=== PATIENT | female | born 1965 | race Caucasian/White ===

== ENCOUNTER 2017-08-09 13:23 | Inpatient (IN) | payer SELFPAY ==
--- NOTE | 2017-08-09 14:39 | CT ---
NONCONTRAST ENHANCED CT IMAGES OF ABDOMEN AND PELVIS: HISTORY: Abdominal pain. FINDINGS: Noncontrast enhanced CT images of the abdomen and pelvis demonstrate the lung bases to be unremarkabl e. No evidence of free intraperitoneal air is seen. The liver is nodular compatible with changes of cirrhosis without evidence of hepatic masses on this noncontrast-enhanced CT. Gallstones seen. No evidence of intrahepatic biliary dilatation is seen. Splenomegaly is seen. The spleen has 3-dimensional measurements of 4.5 x 14.3 x 11.2 cm. Unfortunat abdulaziz, oral contrast was not given. There appears to be nonfilled tortuous lops surrounding the stomac h which may represent possible gastric varicosities. The adrenal gland is unremarkable. The right k idney contains a small approximately 1 mm nonobstructing right-sided renal calculus. No evidence of right-sided hydronephrosis seen. There is severe left-sided hydronephrosis with chronic left renal parenchymal atrophy. The left uret er is dilated. Previously placed left ureteral stent has migrated all the way from the distalmost as pect of the left ureter into the bladder where it has coiled into a large bladder calculus with exten sive lamination. Three-dimensional measurements of this bladder calculus measures 5.3 x 6.2 x 3.9 cm . There is an indwelling Ramirez catheter seen. IMPRESSION: 1. Cirrhosis. 2. Splenomegaly. 3. Cholelithiasis. 4. Findings compatible with varicosities in the left upper quadrant of the abdomen. 5. Severely hydronephrotic left kidney with left-sided hydroureteral nephrosis. 6. Chronically positioned distal left ureter migrating into the bladder and coiling on itself and fo rming a large bladder calculus. POS: DEYANIRA
[2017-08-09] MEDS ORDERED: Morphine 4 MG/ML VIAL ONE (15:05)
--- NOTE | 2017-08-09 15:07 | PDOC.FPRHP ---
- History of Present Illness Chief Complaint: Abdominal Pain History of Present Illness: Patient comes in for abdominal pain which has been on and off for the last 1-2 months. It acutely worsened 2-3 days ago and she decided to come in for evaluation. She had a L uretral stent placed in [place], [place] 1 year ago but has not been able to follow-up because of loss of insurance. PMH includes cirrhosis 2/2 hep C as well as nephrolithiasis. She describes the pain as a 10/10 cramping pain on the RLQ extending to the upper right leg, nothing makes it better or worse. Morphine does help take the edge off. She does have burning with urination and notes decreased urinary frequency for the last few days but she has been drinking less fluids because of the burning with urination. ED Course: Rocephin Vancomycin Morphine Azo CT abd/pelvis shows: cirrhosis, splenomegaly, cholelithiasis, possible abdominal varicosities, L hydronephrosis, L uretral calculi 6cm and migrated uretral stent Transferred from [place] - Allergies/Adverse Reactions Allergies Allergy/AdvReac Type Severity Reaction Status Date / Time No Known Allergies Allergy Unverified 08/09/17 17:09 - Home Medications Medication Instructions Recorded Confirmed Type Ibuprofen 200 mg PO TID PRN 08/09/17 08/09/17 History - History PMHx: cirrhosis 2/2 hep c PSHx: uretral stent 1 year ago 2/2 nephrolithiasis, hysterectomy 2/2 benign tumor of uterus FHx: non-contributory Social: 1/2 ppd smoker for 30 years, social drinker, daily marijuana user - Review of Systems General: denies: fever/chills, night sweats, fatigue Eyes: denies: eye pain, vision changes ENT: reports: nasal congestion. denies: rhinorrhea Respiratory: denies: cough, congestion, shortness of breath Cardiovascular: reports: other (hx of murmur). denies: chest pain, palpitation Gastrointestinal: reports: constipation. denies: nausea, vomiting, diarrhea, abdominal pain, GI bleeding Genitourinary: reports: incontinence (stress incontinence since stent placement) , dysuria. denies: polyuria Skin: reports: rashes (vaginal). denies: itching Musculoskeletal: denies: pain, tenderness Neurological: denies: numbness, weakness - Vital signs BP: 125/76 HR: 78 RR: 19 Tmax: 98.0 Pox: 95% on RA Wt: 86.2kg - Physical Exam Constitutional: NAD, awake, alert and oriented HEENT: normocephalic and atraumatic, PERRLA -HEENT: dry oral mucosa Neck: supple, FROM Heart: RRR, normal S1/S2 -Heart: 2/6 systolic murmur Lungs: CTAB, no respiratory distress -Lungs: mild end-expiratory wheeze Abdomen: soft, non-tender, bowel sounds present -Abdomen: No CVA tenderness Musculoskeletal: normal structure, normal tone Neurological: no focal deficit, CN II-XII intact Skin: no rash/lesions, good turgor, capillary refill <2 seconds Heme/Lymphatic: no unusual bruising or bleeding Psychiatric: normal mood and affect FMR H&P: Results - Labs Result Diagrams: 08/09/17 15:26 08/09/17 15:26 FMR H&P: A/P - Problem List (1) Nephrolithiasis Current Visit: Yes Status: Acute (2) Hydronephrosis, left Current Visit: Yes Status: Acute Code(s): N13.30 - UNSPECIFIED HYDRONEPHROSIS (3) Chronic hepatitis C with cirrhosis Current Visit: Yes Status: Acute Code(s): B18.2 - CHRONIC VIRAL HEPATITIS C ; K74.60 - UNSPECIFIED CIRRHOSIS OF LIVER (4) UTI (urinary tract infection) Current Visit: Yes Status: Acute - Plan # L hydronephrosis 2/2 renal calculi/migrated uretral stent - stent placed 1 yr ago in [place], [place] never removed 2/2 loss of insurance - Urology consulted, will need surgery at some point - await urology recommendations - symptomatic pain management - morphine, norco # UTI - + nitrites, leuk est, bacteria on U/A - rocephin - redness around vagina likely 2/2 yeast infection - diflucan 150mg one time dose # Cirrhosis 2/2 hepatitis c - platelets 163 - will check PT/INR # Stress incontinence - 1 year, likely 2/2 stent # Smoking history - 15 pack year current smoker - end expiratory wheeze - nicotine patch Fluids: none Diet: regular, NPO at midnight Code: full Dispo: pending urology recs FMR H&P: Upper Level - Plan Date/Time: 08/09/17 7693 I, [], have evaluated this patient and agree with findings/plan as outlined by technical internship resident. Pertinent changes/additions are listed here. Attending Addendum - Attending Addendum Date/Time: 08/09/172109 I personally evaluated the patient and discussed the management with Dr. Galaviz and Dr. Mcgarry I agree with the History, Examination, Assessment and Plan documented above with any addition or exceptions noted below. 52 yo female with multiple medical conditions presents for evaluation of urinary symptoms. Over the past 1 to 2 months reports pelvic pain, dysuria, incontinence, and decrease urination. Has not seen MD in over a year. VS reviewed. Labs reviewed. Images reviewed. 1. Displaced ureter stent: Urology consulted. 2. Severe calculi: Now in bladder. Will have to be surgically removed. Urology to see in AM. Ramirez placed. 3. UTI: Continue antibiotics. Culture pending. 4. Cirrhosis 2/2 hep C: T. bili elevated. Trend. AST mildly elevated. Trend. Adjust home meds as needed. Harvey
[2017-08-09 15:34] LABS: #Basophils 0.1 thou/uL (0.0-0.2); #Eosinphils 0.3 thou/uL (0.0-0.7); #Lymphocytes 1.2 thou/uL (1.20-3.40); #Monocytes 0.6 thou/uL (0.11-0.59); #Neutrophils 3.6 thou/uL (1.40-6.50); %Lymphocytes 21.1 % (21.0-51.0); %Monocytes 11.1 % (0.0-10.0); %Neutrophils 61.8 % (42.0-75.0); Hemoglobin 12.8 g/dL (12.0-16.0); Mean Corpuscular HGB CONC 33.7 g/dL (32.0-36.0); Mean Corpuscular Volume 94.8 fl (81.0-99.0); Mean Platelet Volume 6.7 fL (7.4-10.4); Platelet Count 150 thou/uL (130-400); RBC Distribution Width 13.7 % (11.5-14.5); White Blood Cell (WBC) Count 5.7 thou/uL (4.8-10.8)
[2017-08-09 15:40] LABS: INR-International Normal Ratio 1.2; PTT 33.1 SEC (22.9-36.1); Prothrombin Time 15.5 SEC (12.0-14.7)
[2017-08-09 15:43] LABS: Bilirubin Negative (Negative); Blood, Urine Large (Negative); Clarity TURBID (Clear); Glucose, Urine (Dipstick) Negative (Negative); Leukocyte Large (Negative); Protein, Urine (Dipstick) 100 mg/dL (Neg-Trace); Specific Gravity, Urine 1.018 (1.002-1.036)
[2017-08-09 15:48] LABS: Bacteria/HPF 1+ HPF (None Seen); RBC/HPF GREATER THAN 50-TNTC HPF (0-3)
[2017-08-09 15:50] LABS: Pathc Cast-AUWi Flag 18.07 (0-2.49)
[2017-08-09 15:57] LABS: ALT (SGPT) 29 U/L (8-55); AST (SGOT) 40 U/L (5-34); Albumin 3.3 g/dL (3.5-5.0); Alkaline Phosphatase 106 U/L (40-150); Anion Gap 10 mmol/L (10-20); BUN (Urea Nitrogen) 14 mg/dL (9.8-20.1); Bilirubin, Total 2.2 mg/dL (0.2-1.2); Calc. Creatinine Clearance 0 mL/min (70-130); Calcium 8.6 mg/dL (7.8-10.44); Carbon Dioxide 27 mmol/L (22-29); Chloride 105 mmol/L (98-107); Estimated GFR-MDRD 79; Globulin 3.3 g/dL (2.4-3.5); Glucose 91 mg/dL (70-105); Potassium 3.8 mmol/L (3.5-5.1); Protein, Total 6.6 g/dL (6.0-8.3); Sodium 138 mmol/L (136-145)
[2017-08-09 16:03] LABS: Nitrite Unable to Interpret (Negative)
[2017-08-09 16:04] LABS: Hyaline Casts/LPF 0-3 HYALINE CAST LPF (0-3 Hyaline); Other Casts/LPF None Seen LPF (0-3 Hyaline)
[2017-08-09] MEDS ORDERED: cefTRIAXone\\ROCEPHIN 1 GM in Sodium Chloride 0.9% 100 ML IVPB SCH (16:31)
[2017-08-09] MEDS ORDERED: Ondansetron ODT 4 MG TAB PO PRN (16:31)
--- NOTE | 2017-08-09 16:55 | PDOC.EVN ---
Event Note - Event Note Event Note: UPPER LEVEL NOTE Date/Time: 08/09/17 1505 52 yo with uretral stent that was never removed presents with pain in left lower back, suprapubic pain and dysuria. Denies confusion or fever. Gen: obese female in no acute distress, moves around bed with no pain HEENT: NC/AT, RUCHI,EOMI, MMM Resp: CTA, normal work of breathing CV: RRR, normal S1, S2, no murmur ABD: Soft nontender, nondistended. No CVA tenderness Extremities: no edema, pulses 2+ Psych: calm, normal affect and mood Neuro: No focal defecits. CN intact, normal strength and sensation Marquise Contreras, have evaluated this patient and agree with findings/plan as outlined by consultant internship resident in H&P. Pertinent changes/additions are listed here. 1. L obstructive hydronephrosis secondary to calcified uretral stent- Dr. Hayden consulted and recommends that patient be treated conservatively with abx and pain control while patient is worked up for surgyer. will place nephrostomy tube if patient worsens. 2. Cystitis vs pylonephritis- patient has no CVA tenderness or fever and is not septic. will treat with rocephin. one dose of vanc in ED 3- Cirrhosis 2/2 to hep C- Will check LFTs and coags 4. Tobacco abuse- will advise strongly to quit.
[2017-08-09] MEDS ORDERED: Fluconazole 100 MG TAB PO SCH (17:15)
[2017-08-09] MEDS: HYDROcodone/Acetaminophen 10/325 mg Tablet PO PRN ×2 (17:18→21:31)
[2017-08-09] MEDS: Morphine 4 MG/ML VIAL SLOW IVP PRN ×2 (17:18→20:30)
[2017-08-09] MEDS: Nicotine 14 MG PATCH TD SCH (17:22)
[2017-08-09 18:52] VITALS: BMI 37.0
[2017-08-09] MEDS: cefTRIAXone\\ROCEPHIN 1 GM, Syringe 0.4 ML in Sterile Water 9.6 ML SLOW IVP SCH (18:53)
[2017-08-09] MEDS: Docusate 100 MG CAP PO SCH (20:30)
--- NOTE | 2017-08-10 02:31 | CON ---
DATE OF CONSULTATION: 08/09/2017 Consultation was requested for UTI, large bladder stone with retained stent. HISTORY OF PRESENT ILLNESS: Patient is a 52-year-old female who had approximately past month of lower abdominal suprapubic pain, frequency, urgency that worsened to the level of excruciating over the past 1-2 days. She has had multiple stones before and passed 3 on her own. She has required what sounds like left PCNL and was already told previously that the left kidney may not function well in the future. She has had UTIs off and on, but only since the stent was placed approximately one year ago. This was done for a stone and the stone was not removed. She was told she needs to follow up for definitive therapy at [facility]. She tried to go to [facility] multiple times, but ultimately nothing was done. Normally, she has frequency q.2-3 hours, nocturia x0-1, but more recently it has been q.30 minutes and nocturia q.30 minutes. She has had gross hematuria, but no fever, nausea, or vomiting. Urine has been cloudy and malodorous. She is not on antibiotics upon admission. PAST MEDICAL HISTORY: Significant for hepatitis C (IVDA), cirrhosis being diagnosed in 2004. She underwent interferon therapy, which apparently did not work, as her levels were only marginally improved from a titer standpoint. She has not followed up with further GI services related to this. PAST SURGICAL HISTORY: Stent approximately 1 year and three months ago, where the stone prior stent and what sounds like right PCNL. 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 She also had Pap smear after that was concerning, but follow up repeat was normal. ALLERGIES: None. SOCIAL HISTORY: Smokes half pack a day and has for 30 years, smoked a pack a day for about 25 years. She is a social drinker, which means once a month, one glass of wine of that. I discouraged any drinking given her hep C liver status. She uses marijuana regularly/daily, but denies any recent IV drug use. She did use it in the past, the last was at age 17. She was tested for HIV at that time as well and found to be negative. REVIEW OF SYSTEMS: Reveal she had a mammogram 3-4 years ago, which was normal. She had a colonoscopy of 10 years ago, which was normal. She takes ibuprofen and Tylenol daily for aches and pains. She denies any chest pain, shortness of breath, or coughing. She denies any diarrhea or constipation. FAMILY HISTORY: Significant for mom of COPD in her 70s. Father of trauma in almost 80. No known cancer. There was no diabetes in family. PHYSICAL EXAMINATION: GENERAL: She appears comfortable in the bed, is in no distress. VITAL SIGNS: Showed she has been afebrile at 98.2, heart rate 76, respiratory rate 18, satting 96% on room air with blood pressure 150/74. She does not have Ramirez catheters. HEAD, EYES, EARS, NOSE, AND THROAT: She has no obvious JVD. She has no scleral icterus. She has no significant ecchymoses. CARDIOVASCULAR: Regular rate and rhythm. No murmurs, gallops, rubs. RESPIRATORY: Clear to auscultation bilaterally. There was no wheeze noted. ABDOMEN: Soft, mildly distended, mild tenderness in the suprapubic area. No rebound tenderness or peritoneal signs. She had no costovertebral angle tenderness. She had a midline infraumbilical incision noted. EXTREMITIES: She has no lower extremity edema. LABORATORY DATA: Reveal white count of 5.7, otherwise CBC was unremarkable. New coags show INR of 1.2. PT 15.5 and PTT 33.1. BUN and creatinine are 14 and 0.77, bilirubin was 2.2. AST and ALT were 40 and 29 respectively, and alkaline phosphatase 106. Urinalysis revealed too numerous to count rbc's, too numerous to count wbc's, 1+ bacteria, 4-6 squamous cells at the outlying facility, at which she already received a gram of Rocephin for being transferred. She had 2+ bacteria, so we should look for that culture if the culture at this institution is negative. IMAGING: CT scan was reviewed personally, revealed a juancarlos of stone in the right kidney. Left kidney showed no stone or chronic dilation with decreased parenchyma and ureteral dilation down to the bladder with a proximal coil of the stent in the distal ureter without any obvious large stone attached to it, and then it descended into the bladder and the cannulation with a 6-cm stone, presumably this was rest of stent coiled and now there is a giant stone filling her bladder. ASSESSMENT AND PLAN: We have a 52-year-old female with chronic dilation and loss of parenchyma in the left kidney, possibly even before this retained stent episode now definitively. She has no signs of infection of the urine behind the stent given her stable and normal vital signs, lack of left flank pain, and normal white count. We reviewed how if there was any concern for that, she would need a percutaneous nephrostomy tube urgently. But at this point, given the lack of parenchyma and the lack of concern for this, I do not think that would be beneficial. We reviewed how the bladder stone is too large to treat cystoscopically and ultimately will require an open procedure. I would prefer to treat this active infection first. I did discuss how it will be helpful, if she could be medically cleared for any surgical intervention from the heart, lung and liver standpoint. Once all of this is obtained as an inpatient, and depending how long this takes/those recommendations, my anticipation would be that she could be discharged on antibiotics to follow up as an outpatient to arrange definitive surgery in the next 1-4 weeks. IJEOMA
[2017-08-10 05:45] LABS: Anion Gap 6 mmol/L (10-20); BUN (Urea Nitrogen) 16 mg/dL (9.8-20.1); Calc. Creatinine Clearance 124 mL/min (70-130); Carbon Dioxide 31 mmol/L (22-29); Chloride 107 mmol/L (98-107); Estimated GFR-MDRD 85; Glucose 99 mg/dL (70-105); Potassium 3.6 mmol/L (3.5-5.1); Sodium 140 mmol/L (136-145)
[2017-08-10 06:03] LABS: Hemoglobin 11.9 g/dL (12.0-16.0); Mean Corpuscular HGB CONC 33.5 g/dL (32.0-36.0); Mean Corpuscular Hemoglobin 32.1 pg (27.0-31.0); Mean Corpuscular Volume 95.9 fl (81.0-99.0); Mean Platelet Volume 7.3 fL (7.4-10.4); Platelet Count 138 thou/uL (130-400); RBC Distribution Width 13.9 % (11.5-14.5); Red Blood Cell (RBC) Count 3.71 mill/uL (4.20-5.40); White Blood Cell (WBC) Count 6.3 thou/uL (4.8-10.8)
[2017-08-10 06:04] LABS: Band 12 % (5-11); Eosinophils 7 % (0-10); Lymphocytes 18 % (21-51); MDiff Complete? YES; Monocytes 12 % (0-10); Neutrophil 51 % (42-75); PLT Morphology Comment Appears Adequate
--- NOTE | 2017-08-10 07:53 | PDOC.FM ---
- Subjective Subjective: This morning patient is in NAD and states she is "not in much pain." Ranks suprapubic pain at 7/10, random onset, no exacerbated by movement. No issues with PO intake. Has thrasher in place so no dysuria. No N/V. - Objective Vital Signs & Weight: Vital Signs (12 hours) Temp Pulse Resp BP Pulse Ox 08/10/17 07:11 186/85 H 08/10/17 04:15 98 F 78 16 121/71 90 L 08/10/17 00:00 98.1 F 82 20 142/76 H 94 L 08/09/17 20:17 97.9 F 90 22 H 133/75 93 L 08/09/17 20:08 97.9 F 90 22 H Weight Weight 86.183 kg Result Diagrams: 08/10/17 04:52 08/10/17 04:52 <Chilango Galaviz - Last Filed: 08/10/17 07:51> - Objective Vital Signs & Weight: Vital Signs (12 hours) Temp Pulse Resp BP Pulse Ox 08/10/17 11:52 97.9 F 76 18 145/79 H 95 08/10/17 08:25 97.7 F 80 18 91 L 08/10/17 07:20 97.7 F 80 18 141/66 H 91 L 08/10/17 07:11 186/85 H 08/10/17 04:15 98 F 78 16 121/71 90 L Weight Weight 86.183 kg Result Diagrams: 08/10/17 04:52 08/10/17 04:52 <Ariel Sweeney - Last Filed: 08/10/17 12:44> Phys Exam - Physical Examination Constitutional: NAD HEENT: PERRLA, moist MMs Neck: no nodes, full ROM Respiratory: no wheezing, clear to auscultation bilateral Cardiovascular: RRR, no significant murmur, no rub Gastrointestinal: soft, non-tender, no distention, positive bowel sounds No CVA tenderness Musculoskeletal: pulses present trace edema at ankles Neurological: non-focal, moves all 4 limbs Lymphatic: no nodes Psychiatric: normal affect, A&O x 3 <Chilango Galaviz - Last Filed: 08/10/17 07:51> Dx/Plan (1) Nephrolithiasis Status: Acute (2) Hydronephrosis, left Code(s): N13.30 - UNSPECIFIED HYDRONEPHROSIS Status: Acute (3) Chronic hepatitis C with cirrhosis Code(s): B18.2 - CHRONIC VIRAL HEPATITIS C; K74.60 - UNSPECIFIED CIRRHOSIS OF LIVER Status: Acute (4) UTI (urinary tract infection) Status: Acute - Plan Plan: # L hydronephrosis 2/2 renal calculi/migrated uretral stent - stent placed 1 yr ago in [place], [place] never removed 2/2 loss of insurance - Urology consulted - plans for surgery in 1-4 weeks after resolution of infection - patient receiving many PRNs for pain - morphine, norco # Pre-op risk assessment - EKG ordered - Low risk per AHA guidelines -no dm, no hf, no cardiac history, smoking, good exercise tolerance - ACS NSQUIP risk calculator below average risk, 8.9% risk of complication - nephrolithotomy, mild systemic illness, smoker, class 2 obesity - plts 150, INR 1.3, PT 15.5, will check ammonia # UTI - + nitrites, leuk est, bacteria on U/A - rocephin - redness around vagina likely 2/2 yeast infection - diflucan 150mg one time dose # Cirrhosis 2/2 hepatitis c - platelets 150, INR 1.3, Pt 15.5 # Stress incontinence - 1 year, likely 2/2 stent # Smoking history - 15 pack year current smoker - end expiratory wheeze - nicotine patch Fluids: none Diet: regular Code: full Dispo: pending urology recs, rec waiting 1-4 weeks <Chilango Galaviz - Last Filed: 08/10/17 07:51> Attending Addendum - Attending Addendum Date/Time: 08/10/17 1240 I personally evaluated the patient and discussed the management with Dr. Galaviz I agree with the History, Examination, Assessment and Plan documented above with any addition or exceptions noted below. Patient without CVAT at present afebrile, awaiting urine C&S results , RFT wnl, will await Urology rec regard utereral stent and nephrolithiasis. Discussed prophylaxis with antibiotic pending definite procedure. History Hepatitis C followed in [facility]. <Ariel Sweeney - Last Filed: 08/10/17 12:44>
[2017-08-10] MEDS: Docusate 100 MG CAP PO SCH ×2 (08:25→20:57)
[2017-08-10] MEDS: Morphine 4 MG/ML VIAL SLOW IVP PRN ×2 (08:25→12:27)
[2017-08-10] MEDS: Lactated Ringer's 1,000 ML IV SCH ×2 (11:11→20:57)
[2017-08-10] MEDS ORDERED: Senokot S 8.6-50 MG TAB PO SCH ×2 (12:22→13:45)
[2017-08-10] MEDS ORDERED: Polyethylene Glycol 3350 17 GM Packet PO SCH (12:45)
--- NOTE | 2017-08-10 13:15 | PRG ---
DATE OF SERVICE: 08/10/2017 SUBJECTIVE: The patient did well overnight. She did require some pain medicine both oral and IV. S he is tolerating her diet and feels significantly better than upon presentation. PHYSICAL EXAMINATION: GENERAL: She has been afebrile with vital signs stable. ABDOMEN: Soft with decreased tenderness in the suprapubic area from the day prior. LABORATORY DATA: Reveal a normal CBC with H&H has gone down with hydration as well as normal BUN and creatinine with her culture pending. ASSESSMENT AND PLAN: We have a 52-year-old female admitted with UTI and chronic indwelling stent joe t has migrated and become a giant stone ball in her bladder and I still would recommend IV antibiotic s and I would increase her urine output by adding fluids and encouraged her to hydrate excessively an d appreciate the medical workup with the admitting team is provided and asked GI to see her since she has not been followed for hepatitis C and we are anticipating the significant upcoming surgery to ge t input from them as well for now and continue hydration and add fluids as well as continue the Ramirez , but anticipate removing it overnight so that she will be voiding tomorrow. Hopefully, the culture will be back at that time, we can possibly discharge her home on oral antibiotics according to the cu lture.
[2017-08-10] MEDS: HYDROcodone/Acetaminophen 5/325 mg Tablet PO SCH ×3 (13:56→23:36)
[2017-08-10] MEDS: Polyethylene Glycol 3350 17 GM Packet PO SCH (13:56)
--- NOTE | 2017-08-10 15:48 | EKG ---
Test Reason : PREOP Blood Pressure : / mmHG Vent. Rate : 075 BPM Atrial Rate : 075 BPM P-R Int : 142 ms QRS Dur : 090 ms QT Int : 420 ms P-R-T Axes : 072 028 060 degrees QTc Int : 469 ms Normal sinus rhythm Normal ECG No previous ECGs available Confirmed by MAGDALENA KONG ([id number]) on 08/10/2017 3:48:11 PM Referred By: Gayle CARLISLE Confirmed By:MAGDALENA KONG
[2017-08-10] MEDS: cefTRIAXone\\ROCEPHIN 1 GM, Syringe 0.4 ML in Sterile Water 9.6 ML SLOW IVP SCH (18:37)
[2017-08-10] MEDS: Nicotine 14 MG PATCH TD SCH (18:38)
--- NOTE | 2017-08-10 19:13 | CON ---
DATE OF CONSULTATION: 08/10/2017 CHIEF COMPLAINT: Abdominal pain. HISTORY OF PRESENT ILLNESS: Ms. De Leon is a 52-year-old woman who was admitted with lower abdominal cramping to severe aching pain for 2-3 days. She had had some pain on and off over the preceding yea r since she had a ureteral stent placed for calculus. She never had the stent removed and now she pr esented with the stent having migrated to the bladder and developed a large stone around it. She has been evaluated by Urology, who has recommended surgical removal, open removal of the stone; however, the patient was noted to have a history of cirrhosis, so GI was consulted to help assist with operat jo ann risk management. Ms. De Leon was diagnosed with cirrhosis of the liver and hepatitis C around 2004. She was decompensa epi at that point and had hepatic encephalopathy and ascites requiring 6 liters paracentesis. After that, she started a low salt diet and ultimately underwent treatment for the hepatitis C genotype 2B with pegylated interferon with ribavirin. The 6-month end of treatment viral load was positive; henning rowena, the initial 12-week viral load was negative. She had early response, but ultimately was a nonre sponder. She had an EGD around 5 years ago that showed grade 2-3 varices. She was on propranolol at that time. She states that she has since stopped all her medications and only takes multiple vitami n now. She has a glass of wine twice per year. She lost her insurance around a year ago and has not had any follow up with GI over the last 5 years. PAST MEDICAL HISTORY: Cirrhosis of the liver and chronic hepatitis C and nephrolithiasis requiring u reteral stent; however, this was never removed as stated above. PAST SURGICAL HISTORY: Hysterectomy. FAMILY HISTORY: Negative for GI malignancy. SOCIAL HISTORY: She smokes half pack per day. She uses marijuana daily. A glass of wine twice per year. ALLERGIES: No known drug allergies. MEDICATIONS: Prior to admission, multiple vitamin. REVIEW OF SYSTEMS: Negative x10 systems reviewed except as stated in history of present illness. PHYSICAL EXAMINATION: VITAL SIGNS: Temperature 98.4, pulse 79, oxygen saturation 92% on room air, blood pressure 121/67. GENERAL: She is in no acute distress, alert and oriented x3. EYES: Have no scleral icterus. OROPHARYNX: Clear, without lesions. NECK: No cervical or supraclavicular lymphadenopathy. LUNGS: She has a few expiratory wheezes in her left lung cardenas. HEART: Regular rate and rhythm without murmur. ABDOMEN: Soft, nontender, nondistended. Bowel sounds are present. EXTREMITIES: No lower extremity edema now. NEUROLOGIC: Reveals no asterixis currently. LABORATORY DATA: Creatinine 0.77, bilirubin 2.2, AST 40, ALT 29, alkaline phosphatase 106, albumin 3 .3, sodium 138. INR 1.2 with a PT of 15.5. White blood cell count 6.3, hemoglobin 11.9, platelets 1 38. IMPRESSION: 1. Ureteral calculus with foreign body and urinary tract infection. She has been evaluated by [facility], Dr. Hayden and is planned for open surgical removal of the calculus. The plan is to treat her wi th antibiotics first. 2. Cirrhosis of liver secondary to chronic hepatitis C. 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 She barrientos s a MELD score of 11. She has been decompensated in the past with encephalopathy and ascites requiri ng paracentesis; however, she has no ascites or encephalopathy now. Overall, this should be okay to proceed with surgery with caution. She does have a risk for decompensation and ascites following the procedure; however, the procedure is not contraindicated based on a liver standpoint. 3. History of esophageal and possibly gastric varices. She has been on propranolol in the past. I would recommend restarting a nonselective beta erika at this time. We can start with propranolol 1 0 mg 3 times daily and adjust based on heart rate. 4. Hepatoma screening. She should undergo ultrasound of the liver and check alpha fetoprotein. The CT was noncontrast. RECOMMENDATIONS: 1. She should ultimately follow up as an outpatient for treatment of her hepatitis C. 2. I will sign off for now. Please call if GI can be of assistance. 3. I will start propranolol 10 mg 3 times daily, but it is noted that she has had some wheezing and history of smoking. She is advised to discontinue smoking and hopefully, she can tolerate the nonsel ective beta erika from a respiratory standpoint given the varices. If she cannot tolerate the beta erika, then future consideration for endoscopy and banding of varices could be given. 4. She should maintain a low salt diet.
[2017-08-10] MEDS: Propranolol 10 MG TAB PO SCH (20:56)
[2017-08-10] MEDS: Senokot S 8.6-50 MG TAB PO SCH (20:57)
[2017-08-11] MEDS: HYDROcodone/Acetaminophen 5/325 mg Tablet PO SCH ×3 (06:34→11:39)
[2017-08-11] MEDS: Lactated Ringer's 1,000 ML IV SCH (06:35)
[2017-08-11 06:57] LABS: Iron 115 ug/dL (50-170); Iron Binding Capacity, Total 210 mcg/dL (265-497)
[2017-08-11 07:15] LABS: Ferritin 77.43 ng/mL (10-291)
[2017-08-11 07:30] LABS: HBCM Index 0.05 S/CO (0-0.79); HBSAB Concentration 0.66 mIU/mL; HBSAg Index 0.23 S/CO (0-0.99); Hep A IgM AB Non-Reactive (NonReactive); Hep A IgM S/CO 0.14 S/CO (0-0.79); Hep B Surf AB Non-Reactive (NonReactive); Hep B Surf Ag Non-Reactive S/CO (NonReactive); Hepatitis B Core IGM Abs Non-Reactive (NonReactive)
[2017-08-11] MEDS: Polyethylene Glycol 3350 17 GM Packet PO SCH (08:26)
[2017-08-11] MEDS: Docusate 100 MG CAP PO SCH (08:27)
[2017-08-11] MEDS: Senokot S 8.6-50 MG TAB PO SCH (08:27)
[2017-08-11] MEDS: Propranolol 10 MG TAB PO SCH ×2 (08:27→15:10)
[2017-08-11 08:33] LABS: Hep C IgG Ab Reflex HepC Qnt (NonReactive)
[2017-08-11 08:34] LABS: Hep C Index 13.41 S/CO (0-0.79)
--- NOTE | 2017-08-11 08:59 | ULT ---
ULTRASOUND GALLBLADDER RIGHT UPPER QUADRANT: Date: 08/11/17 HISTORY: Cirrhosis, evaluate for hepatoma. COMPARISON: CT abdomen and pelvis without contrast dated 08/09/17. FINDINGS: The pancreas is not well seen. The hepatic echotexture is coarse with a lobular contour. There is cho lelithiasis. Mild distention of the gallbladder. No hepatic mass is appreciated. Right kidney measures 13.6 x 6.3 x 5.7 cm, without mass, hydronephros is, or abnormal calcifications. Liver measures 13.6 cm in length. No significant flow within the port al vein. IMPRESSION: 1. Findings concerning for possible portal vein thrombosis or very slow flow from portal hypertensio n. 2. No abnormal hepatic mass. 3. Hepatic cirrhosis. 4. Cholelithiasis with mildly distended gallbladder. The director of first impressions states there is a positive Murp hy's sign. In the correct clinical setting, this can be early signs of acute cholecystitis. 5. Normal common bile duct. POS: TPC
--- NOTE | 2017-08-11 10:55 | PDOC.FM ---
- Subjective Subjective: This morning the patient states she slept well overnight. She states the norco 5 has been managing her pain very well. She had the thrasher in overnight, it was removed this morning and she has urinated, she denies blood with urination this Am. She still has not had a BM but she states she is passing lots of flatus and feels like the laxative is helping. She denies any problems with PO intake. - Objective Vital Signs & Weight: Vital Signs (12 hours) Temp Pulse Resp BP BP Pulse Ox 08/11/17 08:03 97.9 F 66 16 08/11/17 07:11 98.7 F 74 16 167/97 H 92 L 08/11/17 04:21 97.9 F 66 16 159/60 H 93 L 08/10/17 23:56 98.1 F 67 18 149/76 H 93 L Weight Weight 86.183 kg I&O: 08/10/17 08/11/17 08/12/17 06:59 06:59 06:59 Intake Total 2024 144 Output Total 950 1950 Balance 1075 -510 Result Diagrams: 08/10/17 04:52 08/10/17 04:52 <Chilango Galaviz - Last Filed: 08/11/17 11:05> - Objective Vital Signs & Weight: Vital Signs (12 hours) Temp Pulse Resp BP BP Pulse Ox 08/11/17 11:42 97.4 F L 60 16 113/63 96 08/11/17 08:26 98.7 F 74 16 92 L 08/11/17 07:11 98.7 F 74 16 167/97 H 92 L Weight Weight 86.183 kg I&O: 08/10/17 08/11/17 08/12/17 06:59 06:59 06:59 Intake Total 2024 369 Output Total 950 1950 Balance 1075 1740 Result Diagrams: 08/10/17 04:52 08/10/17 04:52 <Ariel Sweeney - Last Filed: 08/11/17 19:10> Phys Exam - Physical Examination Constitutional: NAD HEENT: PERRLA, moist MMs Neck: no nodes, full ROM Respiratory: no wheezing, clear to auscultation bilateral Cardiovascular: RRR, no significant murmur Gastrointestinal: soft, non-tender, no distention, positive bowel sounds morbidly obese, no CVA tenderness, not tender to palpation today Musculoskeletal: no edema, pulses present Neurological: non-focal, moves all 4 limbs Psychiatric: normal affect, A&O x 3 Skin: no rash, cap refill <2 seconds <Chilango Galaviz - Last Filed: 08/11/17 11:05> Dx/Plan (1) Nephrolithiasis Status: Acute (2) Hydronephrosis, left Code(s): N13.30 - UNSPECIFIED HYDRONEPHROSIS Status: Acute (3) Chronic hepatitis C with cirrhosis Code(s): B18.2 - CHRONIC VIRAL HEPATITIS C; K74.60 - UNSPECIFIED CIRRHOSIS OF LIVER Status: Acute (4) UTI (urinary tract infection) Status: Acute - Plan Plan: # L hydronephrosis 2/2 renal calculi/migrated uretral stent - stent placed 1 yr ago in [place], [place] never removed 2/2 loss of insurance - Urology consulted - recs much appreciated - plan for abdominal surgery around 08/31, treat with doxycycline 100 BID in the meantime as culture was negative - will send patient home with [place] 5, 30 tablets, to return to clinic if pain not improving once these run out - pain is well controlled this AM # Cirrhosis 2/2 hepatitis c - platelets 150, INR 1.3, Pt 15.5 - history of esophageal varicies, paracentesis - currently not in exacerbation - RUQ US shows low portal vein flow - Anticoagulation not indicated now in light of coming surgery - home with propranolol 10mg TID - f/u Dr. Guerra, recs appreciated # Pre-op risk assessment - EKG ordered - Low risk per AHA guidelines -no dm, no hf, no cardiac history, smoking, good exercise tolerance - ACS NSQUIP risk calculator below average risk, 8.9% risk of complication - nephrolithotomy, mild systemic illness, smoker, class 2 obesity - plts 150, INR 1.3, PT 15.5 # UTI - + nitrites, leuk est, bacteria on U/A - s/p rocephin - redness around vagina likely 2/2 yeast infection - diflucan 150mg one time dose # Stress incontinence - 1 year, likely 2/2 stent # Smoking history - 15 pack year current smoker - end expiratory wheeze - nicotine patch Fluids: none Diet: regular Code: full Dispo: d/c today <Chilango Galaviz - Last Filed: 08/11/17 11:05> Attending Addendum - Attending Addendum Date/Time: 08/11/17 190 I personally evaluated the patient and discussed the management with Dr. Galaviz I agree with the History, Examination, Assessment and Plan documented above with any addition or exceptions noted below.Patient stable for discharge will f/ u outpatient with Urologist. <Ariel Sweeney - Last Filed: 08/11/17 19:10>
[2017-08-11 11:52] VITALS: BP 113/63; TEMP 97.4
[2017-08-11 14:35] LABS: EliA Vaculitis New Method **** NEW METHOD ****; Mitochondrial Ab 1.1 U/mL (<4 Negative)
--- NOTE | 2017-08-12 00:39 | DIS-2 ---
DATE OF ADMISSION: 08/09/2017 DATE OF DISCHARGE: 08/11/2017 RESIDENT: Dr. Chilango Galaviz. ADMITTING ATTENDING: Dr. Lindsay Solo. DISCHARGE ATTENDING: Dr. Ariel Sweeney. CONSULTS: Urology, Dr. Hayden, GI, Dr. Saeed. PROCEDURES: Abdominal ultrasound, CT abdomen and pelvis. PRIMARY DIAGNOSIS: Migrated ureteral stent with nephrolithiasis. SECONDARY DIAGNOSES: Hydronephrosis, cirrhosis secondary to hepatitis C, suspected portal vein at risk for portal vein thrombosis, urinary tract infection and tobacco abuse. DISCHARGE MEDICATIONS: Doxycycline 100 mg b.i.d. for 25 days, [place] 5 mg q.8 hours p.r.n. 10 days, MiraLax, propranolol 10 mg t.i.d., and ibuprofen. DISCONTINUED MEDICATIONS: None. HISTORY OF PRESENT ILLNESS AND HOSPITAL COURSE: This 52-year-old female presented to the ED with worsening abdominal pain. The pain had been going on for the last month or so, getting progressively worse, but she could not tolerate it for the last 2 or 3 days, so she decided to come in. She has history of getting a left ureteral stent placed about 1 year ago at [facility] in [place], but was not able to follow up secondary to insurance and social issues. CT of the abdomen and pelvis showed that the left ureteral stent had migrated down to the distal ureter and had a 6 mm nephrolithiasis behind it. She has a significant past medical history of cirrhosis secondary to hepatitis C with history of needing paracentesis and variceal banding. She is not currently in cirrhotic exacerbation. Her pain was well controlled with [place] and morphine upon admission. Urology was consulted and stated that the patient will ultimately need the left ureteral stent and stone removed via abdominal surgery. The patient will need to be treated effectively for her UTI before we can proceed with this surgery. GI was also consulted for evaluation of her cirrhosis. Right upper quadrant ultrasound showed risk for portal vein thrombosis. The patient was put on propranolol 10 mg t.i.d. Patient may need anticoagulation, but is not indicated now in light of urological symptoms and upcoming surgery. Plan is to treat the patient's urinary tract infection and followup outpatient for surgery in 3-4 weeks. Patient will also followup with GI for continued workup of her chronic cirrhosis. DISPOSITION: Stable. DISCHARGE INSTRUCTIONS: 1. Location: Home. 2. Diet: Regular, encourage fluids. 3. Activity: As tolerated. 4. Followup: Primary care provider at [facility], Dr. Hayden in 3-4 weeks , Dr. Guerra in 3-4 weeks. Patient will need open abdominal surgery for the removal of the ureteral stent. Also, will follow up with GI for workup of chronic cirrhosis. The patient's pain should be resolved after a 10-day course of [place] as the stone will not be moving. ER precautions were given to the patient including fever, intolerable abdominal pain, or inability to urinate. MTDD
[2017-08-12 07:38] LABS: Hepatitis A Total ABS Positive (Negative)
--- NOTE | 2017-08-12 09:05 | PRG ---
DATE OF SERVICE: 08/11/2017 S: The patient has done well overnight. She has no complaints. Her catheter was removed and she has voided without difficulty. Objective: her vitals have been stable and she has had good urine output. Unfortunately, the culture from both our hospital and the outlying hospital showed no specific organism. I discussed with the admitting service about discharging her on 4 weeks of doxycycline, but I anticipate seeing her in the office and removing the stone in an open procedure in approximately 2-3 weeks. ASSESSMENT AND PLAN: We have a 52-year-old female with a large bladder stone secondary to an indwelling encrusted stent, admitted with significant pain from a bladder infection, doing much better now, but in need of definitive therapy. I reviewed all of this with her and her significant other, and they are in agreement to see me in the office in the next couple of weeks to do paperwork and plan for an open procedure for cystolithotomy and removal of retained stent. IJEOMA
[2017-08-13 12:18] LABS: HCV log10 6.336 (.); Hep C PCR-Quant 2170000 IU/mL (.)
[2017-08-13 15:28] LABS: Smooth Muscle Total ABS 15 Units (0-19)
== END 2017-08-11 15:57 | disposition home or self-care (01) | DRG 694 ==
LOC: ERS 13:23 → SURG A 15:07
PROVIDERS: ADMIT Family Medicine; ATTEND Family Medicine
DX: N13.2 Hydronephrosis with renal and ureteral calculous obstruction (principal); K74.69 Other cirrhosis of liver; B18.2 Chronic viral hepatitis C; F17.210 Nicotine dependence, cigarettes, uncomplicated; N39.0 Urinary tract infection, site not specified
CPT/HCPCS: 36415; 74176; 76705; 80048; 80053; 80074; 81003; 81015; 82103; 82104; 82140; 82728; 83516; 83540; 83550; 85025; 85610; 85730; 86706; 86708; 87086; 87522; 93005; 93010; 96365; 96375; A4216; J0696; J2270; J3370

== ENCOUNTER 2017-09-25 08:37 | Inpatient (IN) | payer SELFPAY ==
[2017-09-25] MEDS ORDERED: Senokot 8.6 MG TAB PO PRN (11:15)
[2017-09-25] MEDS ORDERED: Artificial Tears 18 DROP/0.9 ML EA EYE PRN (11:15)
[2017-09-25] MEDS ORDERED: Eucerin (Mineral Oil/Petrolatum,White) 30 gm Jar TOP PRN (11:15)
[2017-09-25] MEDS ORDERED: hydrALAZINE 20 MG/ML VIAL SLOW IVP PRN (11:15)
[2017-09-25] MEDS ORDERED: Ketorolac Tromethamine 30 MG/ML VIAL IVP PRN (11:15)
[2017-09-25] MEDS ORDERED: Zolpidem Tartrate 5 MG TAB PO PRN (11:15)
[2017-09-25] MEDS ORDERED: Loperamide HCl 2 MG CAP PO PRN (11:15)
[2017-09-25] MEDS ORDERED: Loratadine 10 MG TAB PO PRN (11:15)
[2017-09-25] MEDS ORDERED: Ondansetron ODT 4 MG TAB PO PRN (11:15)
[2017-09-25] MEDS ORDERED: Ondansetron HCl/PF 4 MG/2 ML Vial IVP PRN (11:15)
[2017-09-25] MEDS ORDERED: Diabetic Tussin 200 MG/10 ML UDCUP PO PRN (11:15)
[2017-09-25] MEDS ORDERED: Acetaminophen 325 MG TAB PO PRN (11:15)
[2017-09-25] MEDS ORDERED: Chloraseptic Spray 180 ml Bottle PO PRN (11:15)
[2017-09-25] MEDS ORDERED: Mag-Al 1200 mg/1200 mg/30 ML UDCUP PO PRN (11:15)
[2017-09-25] MEDS ORDERED: Sodium Chloride 0.65% Nasal 44 ML BOT EA NARE PRN (11:15)
[2017-09-25] MEDS ORDERED: Milk Of Magnesia 30 ML UDCUP PO PRN (11:15)
--- NOTE | 2017-09-25 11:27 | HP ---
PRIMARY CARE PHYSICIAN: City call admission. REASON FOR ADMISSION: Left hydronephrosis, bladder calculi, displaced left ureteral stent. HISTORY OF PRESENT ILLNESS: A 52-year-old female who has a history of left- sided ureteral stent, which was placed in 04/2016 at [facility]. Subsequently, the patient was not able to follow up with Urology and stent was there. The patient was doing okay up until a few days ago she started having left-sided flank pain, which was gradually getting worse. She was feeling crampy pain in her left-sided of flank and she was also having dysuria, increased frequency, and foul-smelling urine. She denied any fever or chills. She denies any associated nausea, vomiting, or diarrhea. She reports that when she was 38 at that time she had a first time diagnosed with a stone and required a nephrostomy tube because patient's stone was too large and she was not a candidate for lithotripsy, subsequently nephrostomy tube was removed and the patient again admitted in [place], [place] with acute kidney failure. At that time, patient had another stent placed in the ureter, which was removed six weeks later. The patient was doing relatively well for a period of time up until last year in April when she required another stent placed in her left ureter at [facility]. The patient reports that she is originally from [place], but recently moved nearby [place], [place] and she was taking care of her as well as parents and she lost her Medicaid as well as social security benefits, because she did not respond timely manner and because of lack of insurance, she was not able to follow up for her care. Today, she went to [facility] for intractable flank pain where she was given Rocephin, morphine, Toradol, and subsequently, she was sent to our emergency room for evaluation and treatment. Currently, her pain is about 7 /10 in intensity. She denies any constipation or diarrhea. She denies any antibiotic exposure. She is not seeing any primary care physician or any urologist lately. The patient was evaluated at [facility] where she had a CT of the abdomen and pelvis with stone protocol, which confirmed left-sided hydronephrosis, massive urinary bladder stone with coiled ureteral stent which is displaced with severe left-sided hydronephrosis, hydroureter and atrophy of the left kidney. The patient also has multiple nonobstructive stone in the right kidney. She does have cirrhosis of liver from chronic hepatitis C. Currently, the patient is not on any medication. PAST MEDICAL HISTORY: Chronic cirrhosis of liver with portal hypertension, chronic hepatitis C, nephrolithiasis, history of ureteral stent placement for ureteral calculi. PAST SURGICAL HISTORY: History of nephrostomy which was removed subsequently, left ureteral stent placement and removal and then repeat stent placement in 2016, hysterectomy, lipoma removed from back. PSYCHIATRIC HISTORY: Reviewed and negative. SOCIAL HISTORY: The patient drinks alcohol socially. She smokes about half pack per day. She abuses marijuana periodically. She denies any other illicit drug abuse. She is not working. She was on disability before, but when her , at that time, she lost her disability benefit as well. FAMILY HISTORY: Both parents from COPD. from liver cancer. No family history of nephrolithiasis. ALLERGIES: No known drug allergy. CURRENT HOME MEDICATIONS: The patient is not on any specific medication at this point. REVIEW OF SYSTEMS: The following complete review of systems was negative, unless otherwise mentioned in the HPI or below: Constitutional: Weight loss or gain, ability to conduct usual activities. Skin: Rash, itching. Eyes: Double vision, pain. ENT/Mouth: Nose bleeding, neck stiffness, pain, tenderness. Cardiovascular: Palpitations, dyspnea on exertion, orthopnea. Respiratory: Shortness of breath, wheezing, cough, hemoptysis, fever, or night sweats. Gastrointestinal: Poor appetite, abdominal pain, heartburn, nausea, vomiting, constipation, or diarrhea. Genitourinary: Urgency, frequency, dysuria, nocturia. Musculoskeletal: Pain, swelling. Neurologic/Psychiatric: Anxiety, depression. Allergy/Immunologic: Skin rash, bleeding tendency. Please see my HPI for pertinent positive and negative. All other review of systems reviewed and negative except as mentioned in the HPI. EMERGENCY ROOM COURSE: At [facility], the patient was treated with Rocephin, Toradol and morphine. She was given morphine in our emergency room. PHYSICAL EXAMINATION: VITAL SIGNS: On arrival, blood pressure 137/76, pulse 74, respiratory rate 20, temperature 98.1, saturation 98% on room air, weight 88.4 kilograms. GENERAL: The patient is currently alert, awake, no obvious acute distress. HEAD: Normocephalic, atraumatic. EYES: Pupils round, reactive to light. Extraocular muscle intact. ENT: Oropharynx within normal limits. Moist mucous membranes. No oral lesion , no pharyngeal erythema, no exudate. NECK: Supple, no JVD, no thyromegaly, no carotid bruit, no jugular venous distention. LUNGS: Clear to auscultation without any rhonchi or rales. CARDIAC: S1, S2 regular. No murmur, no gallop, no rub. ABDOMEN: Soft. The patient does have flank discomfort and suprapubic discomfort. No peritoneal sign, no guarding, no rigidity, no rebound. BACK: CVA tenderness on the left side. EXTREMITIES: Upper extremity: Passive movement of all joints are normal. Lower extremities: No edema. Good peripheral pulsation, no calf tenderness. SKIN: No skin rash. HEMATOLOGICAL: No lymphadenopathy. PSYCHIATRIC: Normal affect. NEUROLOGIC: Nonfocal examination. The patient moves all 4 limbs. Plantar bilateral flexor. SIGNIFICANT LABORATORY DATA: The patient had all testing done at [facility] and reviewed by me. CT of the abdomen and pelvis showed massive urinary bladder stone surrounding extensively coiled ureteral stent within the urinary bladder. Other end of ureteral stent is located in dilated left ureteral distally, urinary bladder wall thickening, severe left hydronephrosis, hydroureter, left kidney atrophy, multiple nonobstructive stone in the right kidney, cirrhosis of liver with portal hypertension, cholelithiasis without any cholecystitis. BMP: Sodium 141, potassium 3.7, chloride 109, carbon dioxide 23 , anion gap 13, BUN 13.3, creatinine 0.7, glucose 118, calcium 8.8. LFT: Alkaline phosphatase 106, AST 41, ALT 29, protein 6.4, albumin 3.1. CBC: WBC 5.4, hemoglobin 13.6, platelet 87. Urinalysis showing blood large, nitrite negative, leukocyte esterase large, rbc and wbc greater than 200. ASSESSMENT: 1. Severe left hydronephrosis and hydroureter with atrophy of left kidney due to obstructive etiology. 2. History of left ureteral calculi with left ureteral stent which appears to be displaced in bladder and other end of stent in distal end of ureter, massive urinary bladder calculi with a ureteral stent, acute cystitis, multiple nonobstructive stone in the right kidney, cirrhosis of liver with portal hypertension, cholelithiasis without any cholecystitis, thrombocytopenia, chronic hepatitis C, tobacco abuse disorder, and marijuana abuse. PLAN: 1. Full admission to medical floor. We will start empiric antibiotic therapy with Rocephin and Levaquin for cystitis. Urology will be consulted and this patient will need urologic surgical procedure may be on Wednesday or Wednesday. We will continue with gentle IV fluid with NS at 75 mL per hour. We will control her pain with morphine and Toradol p.r.n. basis. 2. Deep venous thrombosis prophylaxis with SCD boots only. No Lovenox because of thrombocytopenia. 3. Gastrointestinal prophylaxis, Pepcid 20 mg p.o. b.i.d. 4. Code status: The patient is FULL CODE. The patient does not have any surrogate decision maker. Disposition plan based on clinical course. We are expecting patient's stay in hospital more than 2 midnights. Plan of care discussed with the patient in detail. We will send urine culture and based on urine culture result, we will change antibiotic therapy accordingly. CALVIND
[2017-09-25 13:02] LABS: Bilirubin Negative (Negative); Blood, Urine Large (Negative); Clarity TURBID (Clear); Glucose, Urine (Dipstick) Negative (Negative); Leukocyte Large (Negative); Nitrite Positive (Negative); Protein, Urine (Dipstick) 100 mg/dL (Neg-Trace); Specific Gravity, Urine 1.017 (1.002-1.036)
[2017-09-25 13:07] LABS: Pathc Cast-AUWi Flag 5.68 (0-2.49); Yeast-AUWi Flag 583.6 (0-25.0)
[2017-09-25] MEDS: Sodium Chloride 0.9% 1,000 ML IV SCH ×2 (13:12→23:45)
[2017-09-25] MEDS: cefTRIAXone\\ROCEPHIN 1 GM in Sodium Chloride 0.9% 100 ML IVPB SCH (13:12)
[2017-09-25 13:15] LABS: Bacteria/HPF 3+ HPF (None Seen); Hyaline Casts/LPF 0-3 HYALINE CAST LPF (0-3 Hyaline); Manual Microscopic Reviewed? No Path Casts Seen; Yeast-All Forms None Seen HPF (None Seen)
--- NOTE | 2017-09-25 14:07 | CON ---
DATE OF CONSULTATION: 09/25/2017 CHIEF COMPLAINT: Consultation was requested for abdominal pain with known large bladder stone. HISTORY OF PRESENT ILLNESS: Patient is a 52-year-old female, who was actually admitted after a trans justine from [facility]. She was originally admitted and transferred from [place] in July and I saw her on 08/09/2017 and noted that she had a very large 6 cm bladder stone related to a migrated and presu mably coiled stent with the proximal portion of the stent in the distal ureter. At that time, she wa s discharged on 4 weeks of antibiotics and I attempted to set her up for definitive surgery with me. However, based on lack of insurance issues, there was no ability to get her set up for this and I sp roselyn with a urologist in her area, who was going to see her. She did not see that gentleman yet. She did show up again to the ER and was transferred here with abdominal pain, and after speaking with [facility] emergency room physician, we felt it was best to go ahead and admit her and anticipate surgery this day so that she does not keep coming in every month with the same issue. The patient reports abdominal pain sometimes with urination and sometimes without. No fevers, no chi lls, some hematuria, but no clots. PAST MEDICAL HISTORY: Significant for hepatitis C secondary to IV drug abuse, status post interferon that did not help and subsequent cirrhosis diagnosed in 2004, for which she saw GI her last hospital ization here, and kidney stones. PAST SURGICAL HISTORY: She had a left stent around 04/2016 that was never removed and is the current issue. She also had right PCNL. 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 She also had an abnormal Pap, but subsequents were okay. ALLERGIES: None. REVIEW OF SYSTEMS: Reveals she had a mammogram 3-4 years ago, which was normal; a colonoscopy 10 yea rs ago, which was normal. She denies any chest pain, no cough, no shortness of breath. No nausea, v omiting, or diarrhea. Her bowels have been normal. We previously discussed how her left kidney like ly has no significant function and she reports that this was likely the case even when a stent was pl aced, as there have been chronic changes that she was told about before that stent procedure. MEDICATIONS: None daily. She finished doxycycline approximately 2 weeks ago. FAMILY HISTORY: Mother of COPD in her 70s. Dad of trauma at 79. PHYSICAL EXAMINATION: GENERAL: She appears comfortable in the bed. HEENT: No scleral icterus. NECK: No JVD. CARDIOVASCULAR: Regular rate and rhythm, questionable faint systolic ejection murmur heard. LUNGS: Clear to auscultation bilaterally. ABDOMEN: Soft, nondistended, no significant tenderness. There was mild left CVA tenderness, none on the right. On her abdominal exam, there is a clear midline incision noted infraumbilical from her p rior hysterectomy. EXTREMITIES: No lower extremity edema. LABORATORY DATA: From [facility] show no white count with low platelets, which for her is lower than previous at 87, as she was previously around 150 and 138 before. BUN and creatinine are 13.3 and 0.7 . Urinalysis again from [facility] showed greater than 200 WBCs, greater than 200 RBCs, trace bacteri a, few squamous with few calcium oxalate crystals. CT from [facility], 09/25/2017, without contrast quentin kaplan personally, is relatively unremarkable, and in comparison to her prior, this shows 3 right-si ded stones, 2 in the upper and 1 in the lower, that are 3 mm or less and then the large 6 now 6.5 cm bladder stone with the stent coiled within this and extending into the distal ureter where the coil h as some stone debris proximally as well with chronic left hydroureteronephrosis with very minimal par enchyma on this side as well as gallstones and cirrhosis noted. ASSESSMENT AND PLAN: In assessment, we have a 52-year-old female with a chronic indwelling left uret eral stent that has migrated and now formed a very large growing bladder stone and need of removal. The primary medicine service has agreed to admit her. She was cleared from a surgical standpoint dur ing her last stay by the Family Medicine Service. She was also seen by GI. We will have to monitor platelets carefully, but otherwise I suspect she will be okay for surgery this hospital stay and we w ould appreciate any input from the primary care services on this. Otherwise, we will continue IV ant ibiotics and plan for cystolithotomy soon.
[2017-09-25 15:01] VITALS: BMI 39.2
[2017-09-25] MEDS: Famotidine 20 MG TAB PO SCH (20:27)
[2017-09-25] MEDS: HYDROcodone/Acetaminophen 10/325 mg Tablet PO PRN (21:36)
[2017-09-26] MEDS: HYDROcodone/Acetaminophen 10/325 mg Tablet PO PRN ×3 (02:30→15:16)
[2017-09-26 05:18] LABS: ALT (SGPT) 20 U/L (8-55); AST (SGOT) 31 U/L (5-34); Albumin 2.9 g/dL (3.5-5.0); Alkaline Phosphatase 94 U/L (40-150); Anion Gap 7 mmol/L (10-20); BUN (Urea Nitrogen) 19 mg/dL (9.8-20.1); Bilirubin, Total 2.3 mg/dL (0.2-1.2); Calc. Creatinine Clearance 118 mL/min (70-130); Calcium 8.4 mg/dL (7.8-10.44); Carbon Dioxide 27 mmol/L (22-29); Chloride 109 mmol/L (98-107); Estimated GFR-MDRD 75; Globulin 2.9 g/dL (2.4-3.5); Glucose 97 mg/dL (70-105); Protein, Total 5.8 g/dL (6.0-8.3); Sodium 139 mmol/L (136-145)
[2017-09-26 05:59] LABS: #Eosinphils 0.2 thou/uL (0.0-0.7); #Lymphocytes 1.5 thou/uL (1.20-3.40); #Monocytes 0.6 thou/uL (0.11-0.59); #Neutrophils 2.4 thou/uL (1.40-6.50); %Basophils 0.9 % (0.0-1.0); %Eosinophils 4.5 % (0.0-10.0); %Lymphocytes 30.6 % (21.0-51.0); %Monocytes 13.3 % (0.0-10.0); %Neutrophils 50.8 % (42.0-75.0); Hemoglobin 12.7 g/dL (12.0-16.0); Mean Corpuscular HGB CONC 34.4 g/dL (32.0-36.0); Mean Corpuscular Volume 96.1 fl (81.0-99.0); Mean Platelet Volume 7.7 fL (7.4-10.4); PLT Morphology Comment Appears Decreased; Platelet Count 90 thou/uL (130-400); Red Blood Cell (RBC) Count 3.84 mill/uL (4.20-5.40); White Blood Cell (WBC) Count 4.7 thou/uL (4.8-10.8)
[2017-09-26] MEDS: Saccharomyces boulardii 250 MG CAP PO SCH (08:19)
[2017-09-26] MEDS: Famotidine 20 MG TAB PO SCH ×2 (08:20→21:38)
[2017-09-26] MEDS ORDERED: diphenhydrAMINE 25 MG CAP PO PRN (08:44)
--- NOTE | 2017-09-26 08:46 | PDOC.PN ---
- Subjective Encounter Start Date: 09/26/17 Encounter Start Time: 07:50 -: old records requested/rev Patient seen and examined for left hydronephrosis, c/o itching. No overnight events - Objective Resuscitation Status: Resuscitation Status FULL:Full Resuscitation MAR Reviewed: Yes Vital Signs & Weight: Vital Signs (12 hours) Temp Pulse Resp BP Pulse Ox 09/26/17 07:41 98.0 F 63 18 102/67 94 L 09/26/17 05:00 98.1 F 16 119/67 94 L 09/26/17 00:05 98 F 65 18 91/51 L 95 Weight Weight 201 lb Result Diagrams: 09/26/17 04:12 09/26/17 04:12 Phys Exam - Physical Examination Constitutional: NAD HEENT: PERRLA, moist MMs, sclera anicteric Neck: no JVD, supple Respiratory: no wheezing, no rales, no rhonchi Cardiovascular: RRR, no significant murmur, no rub Gastrointestinal: soft, non-tender, no distention, positive bowel sounds Musculoskeletal: no edema, pulses present Neurological: non-focal, normal sensation, moves all 4 limbs Psychiatric: normal affect, A&O x 3 Skin: no rash, normal turgor Dx/Plan (1) UTI (urinary tract infection) Status: Acute (2) Hydronephrosis, left Code(s): N13.30 - UNSPECIFIED HYDRONEPHROSIS Status: Acute (3) Chronic hepatitis C with cirrhosis Code(s): B18.2 - CHRONIC VIRAL HEPATITIS C; K74.60 - UNSPECIFIED CIRRHOSIS OF LIVER Status: Acute (4) Nephrolithiasis Status: Acute (5) Cannabis abuse Code(s): F12.10 - CANNABIS ABUSE, UNCOMPLICATED Status: Chronic (6) Obesity (BMI 30-39.9) Code(s): E66.9 - OBESITY, UNSPECIFIED Status: Chronic (7) Thrombocytopenia Code(s): D69.6 - THROMBOCYTOPENIA, UNSPECIFIED Status: Chronic (8) Tobacco abuse Code(s): Z72.0 - TOBACCO USE Status: Chronic - Plan cont current plan of care, continue antibiotics * add benadryl for itching * DC IVF after current bag * continue rocephin and levaquin * will repeat labs tomorrow * pt is medically cleared for surgery * medication reviewed as below * symptomatic treatment * follow culture. Review of Systems - Review of Systems Constitutional: negative: fever, chills, sweats, weakness, malaise, other Eyes: negative: Pain, Vision Change, Conjunctivae Inflammation, Eyelid Inflammation, Redness, Other ENT: negative: Ear Pain, Ear Discharge, Nose Pain, Nose Discharge, Nose Congestion, Mouth Pain, Mouth Swelling, Throat Pain, Throat Swelling, Other Respiratory: negative: Cough, Dry, Shortness of Breath, Hemoptysis, SOB with Excertion, Pleuritic Pain, Sputum, Wheezing Cardiovascular: negative: chest pain, palpitations, orthopnea, paroxysmal nocturnal dyspnea, edema, light headedness, other Gastrointestinal: negative: Nausea, Vomiting, Abdominal Pain, Diarrhea, Constipation, Melena, Hematochezia, Other Genitourinary: Dysuria. negative: Frequency, Incontinence, Hematuria, Retention , Other Musculoskeletal: negative: Neck Pain, Shoulder Pain, Arm Pain, Back Pain, Hand Pain, Leg Pain, Foot Pain, Other Skin: negative: Rash, Lesions, Naga, Bruising, Other - Medications/Allergies Allergies/Adverse Reactions: Allergies Allergy/AdvReac Type Severity Reaction Status Date / Time No Known Allergies Allergy Verified 09/25/17 12:13 Medications: Current Medications Acetaminophen (Tylenol) 650 mg PO Q4H PRN PRN Reason: Headache/Fever or Pain Hydrocodone Bitart/Acetaminophen ([place] 10/325) 1 tab PO Q4H PRN PRN Reason: Moderate Pain (4-6) Last Admin: 09/26/17 08:18 Dose: 1 tab Al Hydroxide/Mg Hydroxide (Maalox) 30 ml PO Q6H PRN PRN Reason: Heartburn or Indigestion Artificial Tears (Tears Naturale) 0 drop EA EYE PRN PRN PRN Reason: Dry Eyes Famotidine (Pepcid) 20 mg PO BID [facility] Last Admin: 09/26/17 08:20 Dose: Not Given Guaifenesin (Robitussin Sf) 200 mg PO Q4H PRN PRN Reason: Cough Hydralazine HCl (Apresoline) 10 mg SLOW IVP Q4H PRN PRN Reason: Systolic BP > 180 Ceftriaxone Sodium 1 gm/ (Sodium Chloride) 100 mls @ 200 mls/hr IVPB Q24HR [facility] Last Admin: 09/25/17 13:12 Dose: Not Given Levofloxacin 500 mg/ Device 100 mls @ 100 mls/hr IVPB Q24HR [facility] Last Admin: 09/25/17 13:12 Dose: 100 mls Sodium Chloride (Normal Saline 0.9%) 1,000 mls @ 75 mls/hr IV .[id number] [facility] Last Admin: 09/25/17 23:45 Dose: 1,000 mls Ketorolac Tromethamine (Toradol) 15 mg IVP Q6H PRN PRN Reason: Pain Stop: 09/30/17 11:16 Lactulose (Lactulose) 20 gm PO DAILYPRN PRN PRN Reason: Constipation Loperamide HCl (Imodium) 2 mg PO PRN PRN PRN Reason: Diarrhea/Loose Stools Loratadine (Claritin) 10 mg PO DAILYPRN PRN PRN Reason: Sinus Symptoms Last Admin: 09/26/17 08:19 Dose: 10 mg Magnesium Hydroxide (Milk Of Magnesium) 30 ml PO DAILYPRN PRN PRN Reason: Constipation Mineral Oil/White Petrolatum (Eucerin Cream) 0 gm TOP BIDPRN PRN PRN Reason: Dry Skin Morphine Sulfate (Morphine) 4 mg SLOW IVP Q4H PRN PRN Reason: SEVERE Pain Last Admin: 09/25/17 15:05 Dose: 4 mg Ondansetron HCl (Zofran Odt) 4 mg PO Q6H PRN PRN Reason: Nausea/Vomiting Ondansetron HCl (Zofran) 4 mg IVP Q6H PRN PRN Reason: Nausea/Vomiting Phenol (Chloraseptic [place] 180 Ml Bot) 0 ml PO PRN PRN PRN Reason: Sore Throat Saccharomyces Boulardii (Florastor) 250 mg PO DAILY [facility] Last Admin: 09/26/17 08:19 Dose: 250 mg Senna (Senokot) 2 tab PO HSPRN PRN PRN Reason: Constipation Sodium Chloride ([place] Nasal [place] 0.65%) 0 ml EA NARE QIDPRN PRN PRN Reason: Nasal Congestion Zolpidem Tartrate (Ambien) 5 mg PO HSPRN PRN PRN Reason: Insomnia
[2017-09-26] MEDS: cefTRIAXone\\ROCEPHIN 1 GM in Sodium Chloride 0.9% 100 ML IVPB SCH (12:59)
--- NOTE | 2017-09-26 13:11 | PRG ---
DATE OF SERVICE: 09/26/2017 SUBJECTIVE: The patient did well overnight. There are no issues. She has no complaints other than just pain, so she did not sleep well. There is documentation of Ramirez from yesterday; however, the patient denies ever having this and she does not currently have one in now. I am not sure there would be significant benefit at this time, b ut certainly she will need 1 after the procedure for an extended time. OBJECTIVE: She remained afebrile and her vitals are stable and she was comfortably sleeping in the b ed before I woke her. LABORATORY DATA: Show that her platelets have gone from 87-90. Creatinine stable at 0.80. ASSESSMENT: A 52-year-old female with large retained stent, now encompassing a 6.5 cm bladder stone and need of resection, we will anticipate doing this through an open cystolithotomy on Wednesday. She may or may not end up with an indwelling stent on the left thereafter, but certainly will have a Fole y and a drain and anticipate a 1-2 day hospitalization after that, but being discharged with a Ramirez catheter.
[2017-09-27] MEDS: HYDROcodone/Acetaminophen 10/325 mg Tablet PO PRN ×4 (01:33→21:44)
[2017-09-27 04:24] LABS: #Eosinphils 0.2 thou/uL (0.0-0.7); #Lymphocytes 1.3 thou/uL (1.20-3.40); #Monocytes 0.6 thou/uL (0.11-0.59); #Neutrophils 1.9 thou/uL (1.40-6.50); %Basophils 0.7 % (0.0-1.0); %Eosinophils 5.4 % (0.0-10.0); %Lymphocytes 32.3 % (21.0-51.0); %Monocytes 13.9 % (0.0-10.0); %Neutrophils 47.8 % (42.0-75.0); Hemoglobin 12.1 g/dL (12.0-16.0); Mean Corpuscular Hemoglobin 34.1 pg (27.0-31.0); Mean Corpuscular Volume 94.8 fl (81.0-99.0); Mean Platelet Volume 7.5 fL (7.4-10.4); Platelet Count 78 thou/uL (130-400); Red Blood Cell (RBC) Count 3.54 mill/uL (4.20-5.40); White Blood Cell (WBC) Count 3.9 thou/uL (4.8-10.8)
[2017-09-27 04:34] LABS: Anion Gap 9 mmol/L (10-20); BUN (Urea Nitrogen) 19 mg/dL (9.8-20.1); Calc. Creatinine Clearance 128 mL/min (70-130); Calcium 8.3 mg/dL (7.8-10.44); Carbon Dioxide 25 mmol/L (22-29); Chloride 108 mmol/L (98-107); Estimated GFR-MDRD 82; Glucose 142 mg/dL (70-105); INR-International Normal Ratio 1.3; PTT 33.6 SEC (22.9-36.1); Potassium 3.8 mmol/L (3.5-5.1); Prothrombin Time 16.2 SEC (12.0-14.7); Sodium 138 mmol/L (136-145)
[2017-09-27] MEDS: Famotidine 20 MG TAB PO SCH ×2 (07:57→21:44)
[2017-09-27] MEDS: Saccharomyces boulardii 250 MG CAP PO SCH (07:57)
--- NOTE | 2017-09-27 10:35 | PDOC.PN ---
- Subjective Encounter Start Date: 09/27/17 Encounter Start Time: 08:00 Patient seen and examined for nephrolithiasis. No new complaints. No overnight events - Objective Resuscitation Status: Resuscitation Status FULL:Full Resuscitation MAR Reviewed: Yes Vital Signs & Weight: Vital Signs (12 hours) Temp Pulse Resp BP Pulse Ox 09/27/17 07:47 98.6 F 69 20 118/73 92 L Weight Weight 201 lb I&O: 09/26/17 09/27/17 09/28/17 06:59 06:59 06:59 Intake Total 750 Balance 750 Result Diagrams: 09/27/17 03:40 09/27/17 03:40 Phys Exam - Physical Examination Constitutional: NAD HEENT: PERRLA, moist MMs, sclera anicteric Neck: no JVD, supple Respiratory: no wheezing, no rales, no rhonchi Cardiovascular: RRR, no significant murmur, no rub Gastrointestinal: soft, non-tender, no distention, positive bowel sounds Musculoskeletal: no edema, pulses present Neurological: non-focal, normal sensation, moves all 4 limbs Lymphatic: no nodes Psychiatric: normal affect, A&O x 3 Skin: no rash, normal turgor Dx/Plan (1) UTI (urinary tract infection) Status: Acute (2) Hydronephrosis, left Code(s): N13.30 - UNSPECIFIED HYDRONEPHROSIS Status: Acute (3) Chronic hepatitis C with cirrhosis Code(s): B18.2 - CHRONIC VIRAL HEPATITIS C; K74.60 - UNSPECIFIED CIRRHOSIS OF LIVER Status: Acute (4) Nephrolithiasis Status: Acute (5) Cannabis abuse Code(s): F12.10 - CANNABIS ABUSE, UNCOMPLICATED Status: Chronic (6) Obesity (BMI 30-39.9) Code(s): E66.9 - OBESITY, UNSPECIFIED Status: Chronic (7) Thrombocytopenia Code(s): D69.6 - THROMBOCYTOPENIA, UNSPECIFIED Status: Chronic (8) Tobacco abuse Code(s): Z72.0 - TOBACCO USE Status: Chronic - Plan cont current plan of care, continue antibiotics * continue rocephin and levaquin * follow culture * tomorrow plan for surgery * medication reviewed as below * symptomatic treatment * pain controlled with pain meds. Review of Systems - Review of Systems Constitutional: negative: fever, chills, sweats, weakness, malaise, other Eyes: negative: Pain, Vision Change, Conjunctivae Inflammation, Eyelid Inflammation, Redness, Other ENT: negative: Ear Pain, Ear Discharge, Nose Pain, Nose Discharge, Nose Congestion, Mouth Pain, Mouth Swelling, Throat Pain, Throat Swelling, Other Respiratory: negative: Cough, Dry, Shortness of Breath, Hemoptysis, SOB with Excertion, Pleuritic Pain, Sputum, Wheezing Gastrointestinal: negative: Nausea, Vomiting, Abdominal Pain, Diarrhea, Constipation, Melena, Hematochezia, Other Genitourinary: negative: Dysuria, Frequency, Incontinence, Hematuria, Retention , Other Musculoskeletal: negative: Neck Pain, Shoulder Pain, Arm Pain, Back Pain, Hand Pain, Leg Pain, Foot Pain, Other Skin: negative: Rash, Lesions, Naga, Bruising, Other - Medications/Allergies Allergies/Adverse Reactions: Allergies Allergy/AdvReac Type Severity Reaction Status Date / Time No Known Allergies Allergy Verified 09/25/17 12:13 Medications: Current Medications Acetaminophen (Tylenol) 650 mg PO Q4H PRN PRN Reason: Headache/Fever or Pain Hydrocodone Bitart/Acetaminophen ([place] 10/325) 1 tab PO Q4H PRN PRN Reason: Moderate Pain (4-6) Last Admin: 09/27/17 07:58 Dose: 1 tab Al Hydroxide/Mg Hydroxide (Maalox) 30 ml PO Q6H PRN PRN Reason: Heartburn or Indigestion Artificial Tears (Tears Naturale) 0 drop EA EYE PRN PRN PRN Reason: Dry Eyes Diphenhydramine HCl (Benadryl) 25 mg PO Q6H PRN PRN Reason: Itching & Insomnia Last Admin: 09/26/17 15:19 Dose: 25 mg Famotidine (Pepcid) 20 mg PO BID [facility] Last Admin: 09/27/17 07:57 Dose: 20 mg Guaifenesin (Robitussin Sf) 200 mg PO Q4H PRN PRN Reason: Cough Hydralazine HCl (Apresoline) 10 mg SLOW IVP Q4H PRN PRN Reason: Systolic BP > 180 Ceftriaxone Sodium 1 gm/ (Sodium Chloride) 100 mls @ 200 mls/hr IVPB 1100 [facility] Levofloxacin 500 mg/ Device 100 mls @ 100 mls/hr IVPB 1200 [facility] Ketorolac Tromethamine (Toradol) 15 mg IVP Q6H PRN PRN Reason: Pain Stop: 09/30/17 11:16 Lactulose (Lactulose) 20 gm PO DAILYPRN PRN PRN Reason: Constipation Loperamide HCl (Imodium) 2 mg PO PRN PRN PRN Reason: Diarrhea/Loose Stools Loratadine (Claritin) 10 mg PO DAILYPRN PRN PRN Reason: Sinus Symptoms Last Admin: 09/26/17 08:19 Dose: 10 mg Magnesium Hydroxide (Milk Of Magnesium) 30 ml PO DAILYPRN PRN PRN Reason: Constipation Mineral Oil/White Petrolatum (Eucerin Cream) 0 gm TOP BIDPRN PRN PRN Reason: Dry Skin Morphine Sulfate (Morphine) 4 mg SLOW IVP Q4H PRN PRN Reason: SEVERE Pain Last Admin: 09/25/17 15:05 Dose: 4 mg Ondansetron HCl (Zofran Odt) 4 mg PO Q6H PRN PRN Reason: Nausea/Vomiting Ondansetron HCl (Zofran) 4 mg IVP Q6H PRN PRN Reason: Nausea/Vomiting Phenol (Chloraseptic [place] 180 Ml Bot) 0 ml PO PRN PRN PRN Reason: Sore Throat Saccharomyces Boulardii (Florastor) 250 mg PO DAILY [facility] Last Admin: 09/27/17 07:57 Dose: 250 mg Senna (Senokot) 2 tab PO HSPRN PRN PRN Reason: Constipation Sodium Chloride ([place] Nasal [place] 0.65%) 0 ml EA NARE QIDPRN PRN PRN Reason: Nasal Congestion Zolpidem Tartrate (Ambien) 5 mg PO HSPRN PRN PRN Reason: Insomnia
[2017-09-27] MEDS: cefTRIAXone\\ROCEPHIN 1 GM in Sodium Chloride 0.9% 100 ML IVPB SCH (11:24)
--- NOTE | 2017-09-27 13:57 | PRG ---
DATE OF SERVICE: 09/27/2017 SUBJECTIVE: The patient did well overnight and has no complaints. We reviewed the anticipated surgery and postoperative course in detail. Risks and benefits were reviewed. All questions were answered and I consented her for the anticipated cystolithotomy. After, she is likely to have a drain and Ramirez catheter. On postoperative day 1 or 2, the drain will be removed and she will hopefully be able to be discharged with the Ramirez catheter if all goes according to plan. IJEOMA
[2017-09-28] MEDS: HYDROcodone/Acetaminophen 10/325 mg Tablet PO PRN (01:30)
[2017-09-28] MEDS ORDERED: Furosemide 20 MG/2 ML VIAL ONE ×3 (06:45→06:51)
[2017-09-28] MEDS ORDERED: Fentanyl 100 MCG/2 ML VIAL ONE ×3 (06:53→10:21)
[2017-09-28] MEDS ORDERED: cefTRIAXone\\ROCEPHIN 1 GM VIAL ONE (07:40)
[2017-09-28] MEDS ORDERED: Levofloxacin 500 mg/D5W 100 ml Premix Bag ONE (07:40)
[2017-09-28] MEDS ORDERED: HYDROmorphone 2 MG/ML VIAL SLOW IVP PRN (08:50)
[2017-09-28] MEDS ORDERED: Morphine Sulfate 2 MG/ML SYRINGE SLOW IVP PRN (08:50)
[2017-09-28] MEDS ORDERED: Ondansetron HCl/PF 4 MG/2 ML Vial IVP PRN (08:50)
[2017-09-28] MEDS ORDERED: HYDROmorphone 0.5 MG/0.5 ML SYRINGE ONE ×2 (09:31→10:08)
--- NOTE | 2017-09-28 09:45 | PDOC.PN ---
- Subjective Encounter Start Date: 09/28/17 Encounter Start Time: 06:45 - Objective Resuscitation Status: Resuscitation Status FULL:Full Resuscitation MAR Reviewed: Yes Vital Signs & Weight: Vital Signs (12 hours) Temp Pulse Resp BP Pulse Ox 09/28/17 04:37 98.0 F 63 18 144/73 H 96 Weight Weight 201 lb I&O: 09/27/17 09/28/17 09/29/17 06:59 06:59 06:59 Intake Total 750 1050 Balance 750 1050 Result Diagrams: 09/27/17 03:40 09/27/17 03:40 Phys Exam - Physical Examination Constitutional: NAD HEENT: PERRLA, moist MMs, sclera anicteric Neck: no JVD, supple Respiratory: no wheezing, no rales, no rhonchi Cardiovascular: RRR, no significant murmur, no rub Gastrointestinal: soft, non-tender, no distention, positive bowel sounds Musculoskeletal: no edema, pulses present Neurological: non-focal, normal sensation, moves all 4 limbs Lymphatic: no nodes Psychiatric: normal affect, A&O x 3 Skin: no rash, normal turgor Dx/Plan (1) UTI (urinary tract infection) Status: Acute (2) Hydronephrosis, left Code(s): N13.30 - UNSPECIFIED HYDRONEPHROSIS Status: Acute (3) Chronic hepatitis C with cirrhosis Code(s): B18.2 - CHRONIC VIRAL HEPATITIS C; K74.60 - UNSPECIFIED CIRRHOSIS OF LIVER Status: Acute (4) Nephrolithiasis Status: Acute (5) Cannabis abuse Code(s): F12.10 - CANNABIS ABUSE, UNCOMPLICATED Status: Chronic (6) Obesity (BMI 30-39.9) Code(s): E66.9 - OBESITY, UNSPECIFIED Status: Chronic (7) Thrombocytopenia Code(s): D69.6 - THROMBOCYTOPENIA, UNSPECIFIED Status: Chronic (8) Tobacco abuse Code(s): Z72.0 - TOBACCO USE Status: Chronic - Plan cont current plan of care, continue antibiotics * continue rocephin and levaquin * medication reviewed as below * symptomatic treatment * today plan fo cystolithotomy. Review of Systems - Review of Systems Eyes: negative: Pain, Vision Change, Conjunctivae Inflammation, Eyelid Inflammation, Redness, Other ENT: negative: Ear Pain, Ear Discharge, Nose Pain, Nose Discharge, Nose Congestion, Mouth Pain, Mouth Swelling, Throat Pain, Throat Swelling, Other Respiratory: negative: Cough, Dry, Shortness of Breath, Hemoptysis, SOB with Excertion, Pleuritic Pain, Sputum, Wheezing Cardiovascular: negative: chest pain, palpitations, orthopnea, paroxysmal nocturnal dyspnea, edema, light headedness, other Gastrointestinal: negative: Nausea, Vomiting, Abdominal Pain, Diarrhea, Constipation, Melena, Hematochezia, Other Genitourinary: negative: Dysuria, Frequency, Incontinence, Hematuria, Retention , Other Musculoskeletal: negative: Neck Pain, Shoulder Pain, Arm Pain, Back Pain, Hand Pain, Leg Pain, Foot Pain, Other Skin: negative: Rash, Lesions, Naga, Bruising, Other - Medications/Allergies Allergies/Adverse Reactions: Allergies Allergy/AdvReac Type Severity Reaction Status Date / Time No Known Allergies Allergy Verified 09/25/17 12:13 Medications: Current Medications Acetaminophen (Tylenol) 650 mg PO Q4H PRN PRN Reason: Headache/Fever or Pain Hydrocodone Bitart/Acetaminophen ([place] 10/325) 1 tab PO Q4H PRN PRN Reason: Moderate Pain (4-6) Last Admin: 09/28/17 01:30 Dose: 1 tab Al Hydroxide/Mg Hydroxide (Maalox) 30 ml PO Q6H PRN PRN Reason: Heartburn or Indigestion Artificial Tears (Tears Naturale) 0 drop EA EYE PRN PRN PRN Reason: Dry Eyes Diphenhydramine HCl (Benadryl) 25 mg PO Q6H PRN PRN Reason: Itching & Insomnia Last Admin: 09/26/17 15:19 Dose: 25 mg Famotidine (Pepcid) 20 mg PO BID [facility] Last Admin: 09/27/17 21:44 Dose: 20 mg Fentanyl (Pacu-Sublimaze) 50 mcg SLOW IVP Q10MIN PRN PRN Reason: Moderate to Severe Pain (6-10) Stop: 09/28/17 11:50 Guaifenesin (Robitussin Sf) 200 mg PO Q4H PRN PRN Reason: Cough Hydralazine HCl (Apresoline) 10 mg SLOW IVP Q4H PRN PRN Reason: Systolic BP > 180 Hydromorphone HCl (Pacu-Dilaudid) 0.5 mg SLOW IVP Q10MIN PRN PRN Reason: Moderate to Severe Pain (6-10) Stop: 09/28/17 11:50 Ceftriaxone Sodium 1 gm/ (Sodium Chloride) 100 mls @ 200 mls/hr IVPB 1100 [facility] Last Admin: 09/27/17 11:24 Dose: 100 mls Levofloxacin 500 mg/ Device 100 mls @ 100 mls/hr IVPB 1200 [facility] Last Admin: 09/27/17 12:43 Dose: 100 mls Lactulose (Lactulose) 20 gm PO DAILYPRN PRN PRN Reason: Constipation Loperamide HCl (Imodium) 2 mg PO PRN PRN PRN Reason: Diarrhea/Loose Stools Loratadine (Claritin) 10 mg PO DAILYPRN PRN PRN Reason: Sinus Symptoms Last Admin: 09/26/17 08:19 Dose: 10 mg Magnesium Hydroxide (Milk Of Magnesium) 30 ml PO DAILYPRN PRN PRN Reason: Constipation Mineral Oil/White Petrolatum (Eucerin Cream) 0 gm TOP BIDPRN PRN PRN Reason: Dry Skin Morphine Sulfate (Morphine) 4 mg SLOW IVP Q4H PRN PRN Reason: SEVERE Pain Last Admin: 09/25/17 15:05 Dose: 4 mg Morphine Sulfate (Pacu-Morphine Sulfate) 2 mg SLOW IVP Q10MIN PRN PRN Reason: Moderate to Severe Pain (6-10) Stop: 09/28/17 11:50 Ondansetron HCl (Zofran Odt) 4 mg PO Q6H PRN PRN Reason: Nausea/Vomiting Ondansetron HCl (Zofran) 4 mg IVP Q6H PRN PRN Reason: Nausea/Vomiting Ondansetron HCl (Pacu-Zofran) 4 mg IVP ONE PRN PRN Reason: Nausea/Vomiting Stop: 09/28/17 11:50 Phenol (Chloraseptic [place] 180 Ml Bot) 0 ml PO PRN PRN PRN Reason: Sore Throat Saccharomyces Boulardii (Florastor) 250 mg PO DAILY [facility] Last Admin: 09/27/17 07:57 Dose: 250 mg Senna (Senokot) 2 tab PO HSPRN PRN PRN Reason: Constipation Sodium Chloride ([place] Nasal [place] 0.65%) 0 ml EA NARE QIDPRN PRN PRN Reason: Nasal Congestion Sodium Chloride (Flush - Normal Saline) 10 ml IVF Q12HR [facility] Sodium Chloride (Flush - Normal Saline) 10 ml IVF PRN PRN PRN Reason: Saline Flush Zolpidem Tartrate (Ambien) 5 mg PO HSPRN PRN PRN Reason: Insomnia
[2017-09-28] MEDS ORDERED: Bupivacaine HCl 0.5%/Epinephrine 1:200,000/PF 30 ml Vial ONE (09:55)
[2017-09-28] MEDS ORDERED: Lactated Ringer's 1,000 ML IV SCH (10:30)
[2017-09-28] MEDS: cefTRIAXone\\ROCEPHIN 1 GM in Sodium Chloride 0.9% 100 ML IVPB SCH (11:29)
[2017-09-28] MEDS: Lactated Ringer's 1,000 ML IV SCH ×2 (11:30→20:57)
[2017-09-28] MEDS: Saccharomyces boulardii 250 MG CAP PO SCH (11:35)
--- NOTE | 2017-09-28 11:59 | OP ---
DATE OF PROCEDURE: 09/28/2017 PREOPERATIVE DIAGNOSES: Bladder stone with retained left ureteral stent. POSTOPERATIVE DIAGNOSES: Bladder stone with retained left ureteral stent. PROCEDURE: Open cystolithotomy with removal of bladder stone and left stent. ANESTHESIA: General with endotracheal tube and local anesthetic using Marcaine with epinephrine. SURGEON: Dr. Sarai Hayden ESTIMATED BLOOD LOSS: Less than 100 mL. DRAINS REMAININ Dominican Ramirez and a Louie-Swartz drain. COMPLICATIONS: None. INDICATIONS: The patient is a 52-year-old female who was known to me for the past couple months with encrusted increasing in size bladder stone from a retained left stent. We were trying to get setup where she could actually have a definitive followup, but she was again transferred from [facility] to ours with further pain. So ultimately we decided to keep her in-house so that this procedure could be done and she would quit bouncing back and forth. TECHNIQUE: The patient was brought into the room by Anesthesia, laid on the table in the supine posi tion. After receiving general anesthetic she was positioned supine with all pressure points padded a nd prepped and draped in sterile fashion. Using an infraumbilical midline incision skin was taken do wn to the fascia, which was then opened and adhesions were carefully taken down, mainly with electroc autery and some sharp dissection, sweeping from the pubic bone down and lateral. A proper plane was noted and then a Bookwalter was set up for exposure. An initial opening it was noted I was in the pe ritoneum and small bowel was seen. This was packed away and then elevating what appeared to be every thing initially superiorly that was bowel or abdominal contents. Then, I started to open up what wou ld normally be the bladder; however, once a mesenteric layer was opened it was noted that this was no t bladder, but rather colon so I further freed this up and moved it out of the way of dissection, the n I was able to further palpate what was believed to be the bladder given the stone that I felt as th ough now I could feel and made an opening in the bladder which indeed was the bladder as urine was re leased and the stone was easily seen. The bladder was opened up horizontally approximately 7-8 cm an d hemostasis was assured. One detrusor vessel was ligated with a 2-0 Vicryl. Then, using my fingers careful manipulation, the stone itself was grasped and freed from the bladder and then care was take n to gently remove it in a right lateral fashion in order to free the left proximal coil of the stent which fortunately was not covered in stone, but was able to be released easily with the stone itself and this was sent for chemical analysis. A small amount of bleeding was noted at the inferior pubic area so electrocautery was used for this area and then the bladder itself was closed using 3-0 Vicry l for the mucosa and 2-0 Vicryl for the detrusor and then a serosal layer of 2-0 Vicryl was also made so it was a 3-layer closure. A drain was placed in the left lower quadrant and secured with a nylon suture. Copious amounts of irrigation were then used before closing the fascia. This was done with 0 PDS from the inferior and superior portion of the incision meeting in the middle and then securing it appropriately. More irrigation was used on the skin layer and then 3-0 Vicryl was used to reappr oximate the dermis and a 4-0 Monocryl was used to close the skin in subcuticular fashion. A total of 20 c of Marcaine with epi was used at the incisions superficially. Steri's and a sterile dressing w ere applied. The Ramirez catheter was secured and then the patient was awakened and transferred to PAC U in stable condition.
[2017-09-28] MEDS ORDERED: diphenhydrAMINE 50 MG/ML VIAL ONE (13:28)
[2017-09-28] MEDS ORDERED: Lidocaine 1% PF 5 ML VIAL ONE (13:28)
[2017-09-28] MEDS ORDERED: Dexamethasone 20 MG/5 ML VIAL ONE (13:28)
[2017-09-28] MEDS ORDERED: Ondansetron HCl/PF 4 MG/2 ML Vial ONE (13:28)
[2017-09-28] MEDS ORDERED: PROPOFOL 200 MG/20 ML VIAL ONE (13:28)
[2017-09-28] MEDS ORDERED: Metoclopramide HCl 10 MG/2 ML VIAL ONE (13:28)
[2017-09-28] MEDS ORDERED: PHENYLEPHRINE-NS 100 MCG/ML 10 ML SYRINGE ONE (13:28)
[2017-09-28] MEDS: Famotidine 20 MG TAB PO SCH ×2 (15:57→22:03)
[2017-09-28] MEDS ORDERED: Acetaminophen 500 MG TAB PO PRN (16:14)
[2017-09-28] MEDS ORDERED: Metoclopramide HCl 10 MG/2 ML VIAL IVP PRN (16:14)
--- NOTE | 2017-09-28 18:53 | PRG ---
DATE OF SERVICE: 09/28/2017 SUBJECTIVE: She is sleeping comfortably. She awakens easily. Her pain is relatively well controlle d. OBJECTIVE: VITAL SIGNS: Have been stable at 97.8, heart rate 77, respiratory rate 20, satting 95% on room air. ABDOMEN: Total volume of the urine is pink tinged to clearing in the tubing and in the bag and the J ackson-Swartz drain has serosanguineous discharge approximately 20 mL. She has normoactive bowel soun ds. Her incision is intact with some blood noted. LUNGS: Clear to auscultation bilaterally. HEART: Regular rate and rhythm without murmurs, gallops or rubs. EXTREMITIES: She has no lower extremity edema. ASSESSMENT: A 52-year-old female status post open cystolithotomy and stent removal, doing well. We will order labs in the morning and advance her diet as tolerated.
[2017-09-28] MEDS: Heparin 5,000 UNITS/ML VIAL SC SCH (22:04)
[2017-09-29] MEDS: Lactated Ringer's 1,000 ML IV SCH ×3 (04:41→14:40)
[2017-09-29] MEDS: HYDROcodone/Acetaminophen 10/325 mg Tablet PO PRN ×3 (04:45→14:59)
[2017-09-29 05:40] LABS: Anion Gap 9 mmol/L (10-20); BUN (Urea Nitrogen) 14 mg/dL (9.8-20.1); Calc. Creatinine Clearance 133 mL/min (70-130); Calcium 8.7 mg/dL (7.8-10.44); Carbon Dioxide 28 mmol/L (22-29); Chloride 107 mmol/L (98-107); Estimated GFR-MDRD 86; Glucose 119 mg/dL (70-105); Potassium 4.2 mmol/L (3.5-5.1); Sodium 140 mmol/L (136-145)
[2017-09-29 05:42] LABS: #Lymphocytes 0.7 thou/uL (1.20-3.40); #Monocytes 0.8 thou/uL (0.11-0.59); #Neutrophils 9.2 thou/uL (1.40-6.50); %Basophils 0.1 % (0.0-1.0); %Eosinophils 0.1 % (0.0-10.0); %Lymphocytes 6.6 % (21.0-51.0); %Monocytes 7.2 % (0.0-10.0); Mean Corpuscular HGB CONC 35.2 g/dL (32.0-36.0); Mean Corpuscular Hemoglobin 33.3 pg (27.0-31.0); Mean Corpuscular Volume 94.6 fl (81.0-99.0); Mean Platelet Volume 7.5 fL (7.4-10.4); Platelet Count 106 thou/uL (130-400); RBC Distribution Width 13.1 % (11.5-14.5); White Blood Cell (WBC) Count 10.7 thou/uL (4.8-10.8)
[2017-09-29] MEDS: Saccharomyces boulardii 250 MG CAP PO SCH (08:22)
[2017-09-29] MEDS: Heparin 5,000 UNITS/ML VIAL SC SCH ×2 (08:22→15:00)
[2017-09-29] MEDS: Famotidine 20 MG TAB PO SCH (08:22)
[2017-09-29] MEDS ORDERED: Oxybutynin 5 MG TAB PO SCH (09:00)
[2017-09-29] MEDS ORDERED: Docusate 100 MG CAP PO SCH (09:00)
--- NOTE | 2017-09-29 09:01 | PRG ---
DATE OF SERVICE: 09/29/2017 SUBJECTIVE: The patient did well overnight with some pain, but it was actually the first time in cou ple of years that she has not had the same bladder pain that she would usually wake up with. She has had no nausea, no vomiting, no burping. She feels rumbling, but has not passed gas yet. She tolera epi possibly 2 clear liquid trays in addition to some regular food later in the evening that her husb and provided for her. PHYSICAL EXAMINATION: VITAL SIGNS: Her vitals have been stable. She does have 90% on room air, but that was the first thi ng this morning, so suspect this has already improved. RESPIRATORY: Clear to auscultation bilaterally. CARDIOVASCULAR: Heart regular rate and rhythm without murmurs, gallops or rubs. ABDOMEN: Soft, appropriately tender. Dressing intact with bloody discharge noted from the fold of t he incision. LABORATORY DATA: Urine output was greater than 400, estimate overnight was not listed. The Louie- Swartz drain was 40 since surgery. ASSESSMENT: We have a 52-year-old female status post open cystolithotomy, doing well other than need ing to get up and move around. Reviewed this in detail and how the goal is to remove her drain befor e discharge, but keep her Ramirez in place. We discussed getting a cystogram versus just keeping the c atheter in at least 10-14 days and a voiding cystogram. Based on her insurance and financial status they are comfortable just keeping the catheter longer and avoiding that test. We reviewed how I woul d continue her on antibiotics until the catheter is removed and certainly if it fell out before the d esignated removal time she would need to have it replaced. Otherwise, she could wait all the way to the 4-6 week jimmie to follow up with me in the office. I reviewed how if she gets up and ambulates an d has no difficulty and is tolerating everything oral then she could potentially be discharged later this evening. Otherwise, I anticipate discharging her in the morning depending on her progress today .
--- NOTE | 2017-09-29 10:52 | DIS ---
DATE OF ADMISSION: 09/25/2017 DATE OF DISCHARGE: 09/29/2017 PRIMARY CARE PHYSICIAN: [facility] call admission. DISCHARGE DISPOSITION: Home. PRIMARY DISCHARGE DIAGNOSES: Left hydronephrosis, nephrolithiasis, bladder calculi, urinary tract in fection, status post cystolithotomy. SECONDARY DISCHARGE DIAGNOSES: Chronic hepatitis C, cirrhosis of liver with portal hypertension, obe sity with body mass index 39, thrombocytopenia, tobacco abuse disorder, marijuana abuse. PRIMARY PROCEDURE/OPERATION: Dr. Catracho Moon did open cystolithotomy with removal of bladder stone and left ureteral stent placement. RADIOLOGICAL INVESTIGATION: Patient had CT of the abdomen and pelvis at [facility], which sh owed left hydronephrosis, left ureteral stent collapsed to the bladder with stones and other end of s tent in distal ureter, right-sided nephrolithiasis. SIGNIFICANT LABORATORY DATA: WBC 10.7, hemoglobin 13.0, platelet 106. INR 1.3. Sodium 140, potassi um 4.2, BUN 14, creatinine 0.71, calcium 8.7, AST 31, ALT 20, alkaline phosphatase 94, albumin 2.9, a nd bilirubin 2.3. Urinalysis suggestive of UTI. Urine culture grew lactobacillus. DISCHARGE MEDICATIONS: Cipro 500 mg p.o. b.i.d. for 10 more days, oxybutynin 5 mg p.o. b.i.d., and F lorastor 250 mg p.o. daily. CONTRAINDICATIONS: None. CODE STATUS: FULL CODE. INPATIENT CREDIT UNION EXAMINER: Dr. Catracho Moon was consulted for bladder stone. TEST RESULTS PENDING ON DISCHARGE: Pathology report from stone. DISCHARGE PLAN: Post hospital, patient will follow up with Dr. Catracho Moon as instructed in 1 or 2 weeks. The patient will make appointment with primary care physician. HOSPITAL COURSE: A 52-year-old female who was admitted by me on 09/25/2017. Please see my HPI for f urther details. This patient has a history of nephrolithiasis. She had a stent placed in her left u reter, but subsequently she did not follow it up and the stent remains in place over time. Her stent migrated to bladder with the stone and one end of stent remained in the distal ureter. Patient was found with left hydronephrosis. She was presented to emergency room with left-sided flank pain. Pat ient was evaluated at a local [place] [facility] and the patient was found with complicated UTI . Patient was transferred to our hospital. We consulted Urology. Urology decided to do surgery on Wednesday, which was done day before yesterday and postoperatively patient is doing very well. The pat ietrung had open cystolithotomy and bladder calculi removal and left ureteral stent placed. Subsequentl y, patient had Ramirez catheter in. Patient was not having any hematuria. Her pain is under control. Dr. Catracho Moon evaluated this patient earlier today and she recommended that patient can be discha rged home later on today. The patient is ambulatory, tolerating p.o. well. The patient is also seen and examined at bedside today. Plan of care discussed with the patient's hu sband and patient at bedside. The patient is medically stable. PHYSICAL EXAMINATION: VITAL SIGNS: Currently, temperature 98.7, pulse 69, respiratory rate 18, saturation 98%, blood press ure 127/79, weight 201 pounds. GENERAL: The patient is currently alert, awake, no obvious acute distress. HEAD: Normocephalic, atraumatic. EYES: Pupils round and reactive to light. ENT: Oropharynx within normal limits. Moist mucous membranes, no oral lesion, no pharyngeal erythem a, no exudate. NECK: Supple, no JVD, no thyromegaly, no carotid bruit. LUNGS: Clear to auscultation without any rhonchi or rales. CARDIAC: S1 and S2 regular without any murmur. ABDOMEN: Soft, bowel sounds present. Surgical site is clean and healthy. Ramirez catheter in place. EXTREMITIES: No edema. NEUROLOGIC: Nonfocal examination. Overall, patient is medically stable for discharge as long as Dr. Moon is okay and patient is okay l ater on today. Plan of care discussed with the patient and her at bedside today.
--- NOTE | 2017-09-29 10:56 | PDOC.PN ---
- Subjective Encounter Start Date: 09/29/17 Encounter Start Time: 07:40 Patient seen and examined for bladder stone. No new complaints. No overnight events - Objective Resuscitation Status: Resuscitation Status FULL:Full Resuscitation MAR Reviewed: Yes Vital Signs & Weight: Vital Signs (12 hours) Temp Pulse Resp BP Pulse Ox 09/29/17 07:36 98.7 F 69 18 127/79 90 L 09/29/17 05:50 98.3 F 71 20 137/79 95 09/29/17 00:00 98.6 F 84 18 107/68 100 Weight Weight 201 lb I&O: 09/28/17 09/29/17 09/30/17 06:59 06:59 06:59 Intake Total 1050 1500 Output Total 430 Balance 1050 1070 Result Diagrams: 09/29/17 04:40 09/29/17 04:40 Phys Exam - Physical Examination Constitutional: NAD HEENT: PERRLA, moist MMs, sclera anicteric Neck: no JVD, supple Respiratory: no wheezing, no rales, no rhonchi Cardiovascular: RRR, no significant murmur, no rub Gastrointestinal: soft, non-tender, no distention, positive bowel sounds thrasher+ Musculoskeletal: no edema, pulses present Neurological: non-focal, normal sensation, moves all 4 limbs Psychiatric: normal affect, A&O x 3 Skin: no rash, normal turgor Dx/Plan (1) UTI (urinary tract infection) Status: Acute (2) Hydronephrosis, left Code(s): N13.30 - UNSPECIFIED HYDRONEPHROSIS Status: Acute (3) Chronic hepatitis C with cirrhosis Code(s): B18.2 - CHRONIC VIRAL HEPATITIS C; K74.60 - UNSPECIFIED CIRRHOSIS OF LIVER Status: Acute (4) Nephrolithiasis Status: Acute (5) Cannabis abuse Code(s): F12.10 - CANNABIS ABUSE, UNCOMPLICATED Status: Chronic (6) Obesity (BMI 30-39.9) Code(s): E66.9 - OBESITY, UNSPECIFIED Status: Chronic (7) Thrombocytopenia Code(s): D69.6 - THROMBOCYTOPENIA, UNSPECIFIED Status: Chronic (8) Tobacco abuse Code(s): Z72.0 - TOBACCO USE Status: Chronic - Plan cont current plan of care, plan discussed w/ family, continue antibiotics * medication reviewed as below * symptomatic treatment * leave thrasher in on discharge * discussed with * possible discharge today. Review of Systems - Review of Systems Eyes: negative: Pain, Vision Change, Conjunctivae Inflammation, Eyelid Inflammation, Redness, Other ENT: negative: Ear Pain, Ear Discharge, Nose Pain, Nose Discharge, Nose Congestion, Mouth Pain, Mouth Swelling, Throat Pain, Throat Swelling, Other Respiratory: negative: Cough, Dry, Shortness of Breath, Hemoptysis, SOB with Excertion, Pleuritic Pain, Sputum, Wheezing Cardiovascular: negative: chest pain, palpitations, orthopnea, paroxysmal nocturnal dyspnea, edema, light headedness, other Gastrointestinal: negative: Nausea, Vomiting, Abdominal Pain, Diarrhea, Constipation, Melena, Hematochezia, Other Genitourinary: negative: Dysuria, Frequency, Incontinence, Hematuria, Retention , Other Musculoskeletal: negative: Neck Pain, Shoulder Pain, Arm Pain, Back Pain, Hand Pain, Leg Pain, Foot Pain, Other Skin: negative: Rash, Lesions, Naga, Bruising, Other - Medications/Allergies Allergies/Adverse Reactions: Allergies Allergy/AdvReac Type Severity Reaction Status Date / Time No Known Allergies Allergy Verified 09/25/17 12:13 Medications: Current Medications Acetaminophen (Tylenol) 650 mg PO Q4H PRN PRN Reason: Headache/Fever or Pain Acetaminophen (Tylenol) 1,000 mg PO Q6H PRN PRN Reason: Fever > 101 Hydrocodone Bitart/Acetaminophen (Placedo 10/325) 1 tab PO Q4H PRN PRN Reason: Moderate Pain (4-6) Last Admin: 09/29/17 09:19 Dose: 1 tab Al Hydroxide/Mg Hydroxide (Maalox) 30 ml PO Q6H PRN PRN Reason: Heartburn or Indigestion Artificial Tears (Tears Naturale) 0 drop EA EYE PRN PRN PRN Reason: Dry Eyes Diphenhydramine HCl (Benadryl) 25 mg PO Q6H PRN PRN Reason: Itching & Insomnia Last Admin: 09/26/17 15:19 Dose: 25 mg Docusate Sodium (Colace) 100 mg PO BID [facility] Last Admin: 09/29/17 09:19 Dose: 100 mg Famotidine (Pepcid) 20 mg PO BID [facility] Last Admin: 09/29/17 08:22 Dose: 20 mg Guaifenesin (Robitussin Sf) 200 mg PO Q4H PRN PRN Reason: Cough Heparin Sodium (Porcine) (Heparin) 5,000 units SC TID [facility] Last Admin: 09/29/17 08:22 Dose: 5,000 units Hydralazine HCl (Apresoline) 10 mg SLOW IVP Q4H PRN PRN Reason: Systolic BP > 180 Ceftriaxone Sodium 1 gm/ (Sodium Chloride) 100 mls @ 200 mls/hr IVPB 1100 [facility] Last Admin: 09/28/17 11:29 Dose: 100 mls Levofloxacin 500 mg/ Device 100 mls @ 100 mls/hr IVPB 1200 [facility] Last Admin: 09/28/17 12:04 Dose: Not Given Lactated Ringer's (Lactated Ringer's) 1,000 mls @ 125 mls/hr IV .Q8H [facility] Last Admin: 09/29/17 04:49 Dose: 1,000 mls Lactulose (Lactulose) 20 gm PO DAILYPRN PRN PRN Reason: Constipation Loperamide HCl (Imodium) 2 mg PO PRN PRN PRN Reason: Diarrhea/Loose Stools Loratadine (Claritin) 10 mg PO DAILYPRN PRN PRN Reason: Sinus Symptoms Last Admin: 09/26/17 08:19 Dose: 10 mg Magnesium Hydroxide (Milk Of Magnesium) 30 ml PO DAILYPRN PRN PRN Reason: Constipation Metoclopramide HCl (Reglan) 10 mg IVP Q6H PRN PRN Reason: Nausea/Vomiting Mineral Oil/White Petrolatum (Eucerin Cream) 0 gm TOP BIDPRN PRN PRN Reason: Dry Skin Ondansetron HCl (Zofran Odt) 4 mg PO Q6H PRN PRN Reason: Nausea/Vomiting Ondansetron HCl (Zofran) 4 mg IVP Q6H PRN PRN Reason: Nausea/Vomiting Oxybutynin Chloride (Ditropan) 5 mg PO BID [facility] Last Admin: 09/29/17 09:20 Dose: 5 mg Phenol (Chloraseptic Savage 180 Ml Bot) 0 ml PO PRN PRN PRN Reason: Sore Throat Saccharomyces Boulardii (Florastor) 250 mg PO DAILY [facility] Last Admin: 09/29/17 08:22 Dose: 250 mg Senna (Senokot) 2 tab PO HSPRN PRN PRN Reason: Constipation Sodium Chloride (Custer Nasal Savage 0.65%) 0 ml EA NARE QIDPRN PRN PRN Reason: Nasal Congestion Sodium Chloride (Flush - Normal Saline) 10 ml IVF Q12HR [facility] Last Admin: 09/29/17 08:23 Dose: Not Given Sodium Chloride (Flush - Normal Saline) 10 ml IVF PRN PRN PRN Reason: Saline Flush Zolpidem Tartrate (Ambien) 5 mg PO HSPRN PRN PRN Reason: Insomnia
[2017-09-29] MEDS: cefTRIAXone\\ROCEPHIN 1 GM in Sodium Chloride 0.9% 100 ML IVPB SCH (14:40)
[2017-09-29 17:14] VITALS: BP 132/65; TEMP 98.3
== END 2017-09-29 18:37 | disposition home or self-care (01) | DRG 660 ==
LOC: ERS 08:37 → T4-A 11:07
PROVIDERS: ADMIT Internal Medicine; ATTEND Internal Medicine
PROC: 0TCB0ZZ Extirpation of Matter from Bladder, Open Approach (ICD-10-PCS; principal; 2017-09-28)
PROC: 0TP90DZ Removal of Intraluminal Device from Ureter, Open Approach (ICD-10-PCS; 2017-09-28)
DX: N13.2 Hydronephrosis with renal and ureteral calculous obstruction (principal); K76.6 Portal hypertension; N39.0 Urinary tract infection, site not specified; N21.0 Calculus in bladder; B18.2 Chronic viral hepatitis C; K74.60 Unspecified cirrhosis of liver; E66.9 Obesity, unspecified; Z68.39 Body mass index [BMI] 39.0-39.9, adult; D69.6 Thrombocytopenia, unspecified; F12.10 Cannabis abuse, uncomplicated; Z72.0 Tobacco use; Z90.79 Acquired absence of other genital organ(s); Z90.722 Acquired absence of ovaries, bilateral
CPT/HCPCS: 36415; 80048; 80053; 81001; 82365; 85025; 85610; 85730; 87086; 88300; 96374; A4216; J0670; J0696; J1100; J1170; J1200; J1644; J1940; J1956; J2001; J2270; J2405; J2704; J2765; J3010; J7050